=== PATIENT | male | born 1935 | race Caucasian/White ===

== ENCOUNTER 2017-07-16 08:46 | Day surgery (SDC) | payer OTHER, MEDICARE ==
--- NOTE | 2017-07-15 16:19 | EKG ---
Test Date: 2017-07-15 Test Time: 13:43:35 Merchandise Flow Associate: EDUARDA MEASUREMENT RESULTS: Intervals: Rate: 79 NV: 178 QRSD: 98 QT: 398 QTc: 456 Webster: P: 57 NV: 178 QRS: -12 T: 29 INTERPRETIVE STATEMENTS: Normal sinus rhythm Normal ECG Compared to ECG 04/23/2004 09:02:00 No significant changes Electronically Signed On 07-15-17 16:18:49 CDT by Vidal Brand
[2017-07-16] MEDS ORDERED: Ringers Lactate 1,000 ML IV ONE ×2 (08:51→11:57)
[2017-07-16] MEDS: LIDOCAINE 1% W/EPI 1:100,000 MDV 50 ML VIAL ONE ×2 (09:17→10:27)
[2017-07-16] MEDS ORDERED: PROPOFOL 200 MG/20 ML VIAL IV ONE (09:57)
[2017-07-16] MEDS ORDERED: FENTANYL CITR 100 MCG/2 ML ONE (09:58)
[2017-07-16] MEDS ORDERED: LIDOCAINE 2% MPF 5 ML VIAL ONE (09:58)
[2017-07-16] MEDS ORDERED: PROMETHAZINE 25 MG/ML VIAL ONE (11:40)
[2017-07-16] MEDS ORDERED: MORPHINE 4 MG/ML SYR ONE (11:41)
[2017-07-16] MEDS: FENTANYL CITR 100 MCG/2 ML ONE ×7 (11:54→12:38)
[2017-07-16 12:22] VITALS: TEMP 98.6
--- NOTE | 2017-07-16 12:46 | P.BOP ---
Preoperative diagnosis: BCC nose x 2, right neck skin lesion (uncertain behavior ) Postoperative diagnosis: same Primary procedure: WLE x 3, FS, layered closure dorsum, local flap ala Resource Director: NONE,NONE Estimated blood loss: <10ml Specimen: nasal dorsum, L nasal ala, L nasal ala deep (perm), R neck (perm) Anesthesia: General Complications: None Implants: none Transferred to: Recovery Room Condition: Good
[2017-07-16] MEDS ORDERED: TRAMADOL HCL 50 MG TAB ONE (13:28)
[2017-07-16 13:58] VITALS: BP 172/98; O2SAT 99
--- NOTE | 2017-07-18 20:58 | OP ---
Date of Procedure: 07/16/2017 Surgeon: Najma Mariano MD Preoperative Diagnosis: Basal cell carcinoma, nasal dorsum and left nasal ala and right neck skin le carl of uncertain behavior. Indication For Procedure: The patient underwent previous biopsy by his vp biology indicating basa l cell carcinoma of the left nasal ala and the nasal dorsum and on exam was noted to have a dark pigm ented lesion of the right neck. The risks, benefits, and alternatives to the procedure were discusse d with the patient, who agreed to proceed. Description Of Procedure In Detail: The patient was brought to the operating room. He was placed un jaylon general anesthesia. The nose and right neck were injected with local anesthetic and the face and neck were prepped in a standard fashion with Betadine and draped in a sterile fashion. Attention wa s first turned to the nasal dorsum. The prior biopsy site was noted, and a vertical fusiform incisio n was designed around this biopsy site using a 15-blade scalpel. The full-thickness skin was elevate d off the underlying soft tissues. A suture was used to shalom the superior most aspect as 12 o'clock and the specimen was sent to pathology for frozen section analysis. Bleeding at the base of the woun d was controlled with Bovie electrocautery and the lateral aspects were undermined using scissors. T he defect was 1.5 x 0.5 cm. A 4-0 Vicryl suture was used to approximate the wound edges creating a v ertical wound across the nasal dorsum and the skin were closed in a running fashion using 5-0 fast-ab sorbing gut. Attention was then turned to the left nasal ala. The prior biopsy site was noted and a circular exci carl of the biopsy site was performed. The defect was approximately 7 mm. A suture was placed at 12 o'clock marking in the superior aspect of the specimen and the specimen was sent to pathology for fr ozen section analysis. Due to complexity of reconstruction in this area, reconstruction was deferred until frozen section results were available. While awaiting these frozen section results, attention was turned to the right neck. A dark pigmented lesion approximately 8 mm in diameter was noted, and a fusiform excision parallel to the relaxed skin tension lines around the lesion was designed. Full -thickness tissue was excised. No marking stitch was placed and the specimen was sent to pathology f or permanent section only. The surrounding tissues were carefully undermined and the incision was cl osed in a layered fashion in order to reduce tension and improve healing. The deep tissues were appr oximated using a 4-0 Vicryl suture and the skin was closed in a running fashion using 5-0 fast-absorb ing gut. Results from the pathologist regarding the nasal lesions revealed the nasal dorsum margins to be negative with minimal nests of basaloid appearing tissues. The peripheral margins on the left nasal ala site were negative, but the deep margin was felt to be very close. A new deep margin was e xcised with true margin marked with ink. This new specimen was sent for permanent section only and r econstruction options were considered. Bleeding at the surgical site was controlled using needlepoin t Bovie electrocautery. Decision was made for a rhomboid rotational flap with a lateral superior bas ed pedicle. The flap was designed, cut, elevated, and rotated into place. The flap was secured in p lace using Vicryl suture and the skin was closed in a running fashion using 5-0 fast-absorbing gut lan tures. Triple antibiotic ointment was applied to all the incisions and the patient was returned to c are of Anesthesia for awakening and extubation in the operating room, which proceeded without difficu lty. Complications: None. Disposition: The patient will be discharged home later today in the care of his family and will foll ow up with Dr. Mariano in 10 days for evaluation of wounds and healing. CARLOS ALBERTO Voice ID: [id number] Report ID: [id number]
== END 2017-07-16 14:46 | disposition home or self-care (01) ==
LOC: OR 08:46
PROVIDERS: ATTEND Otolaryngology
PROC: 0HB4XZZ Excision of Neck Skin, External Approach (ICD-10-PCS; 2017-07-16)
PROC: 0HB1XZZ Excision of Face Skin, External Approach (ICD-10-PCS; principal; 2017-07-16 10:30)
DX: C44.311 Basal cell carcinoma of skin of nose (principal); L82.1 Other seborrheic keratosis; I10 Essential (primary) hypertension; N40.0 Benign prostatic hyperplasia without lower urinary tract symptoms
CPT/HCPCS: 11421; 11641; 11642; 88305 ×2; 88331; 88332; 93005; J2550; J3010 ×3

== ENCOUNTER 2019-09-27 21:11 | Inpatient (IN) | payer OTHER, MEDICARE ==
[2019-09-27] MEDS ORDERED: TETANUS & DIPHTHERIA TOX,ADULT 0.5 ML VIAL ONE (21:53)
[2019-09-27 21:54] LABS: Absolute Lymphocytes (CBC) 0.6 K/uL (0.7-4.9); Basophils % 0.1 % (0-1.3); Hematocrit 25.6 % (39.6-49.0); Lymphocytes % 3.4 % (15.3-44.8); MPV 6.5 fL (7.6-11.3); Protime INR 0.94; RBC Red Blood Cell Count 2.72 M/uL (4.33-5.43)
[2019-09-27 22:30] LABS: Albumin 3.3 g/dL (3.4-5.0); Bilirubin Direct 0.1 mg/dL (0-0.2); Bilirubin Total 0.4 mg/dL (0.2-1.0); CKMB Creatine Kinase MB 7.4 ng/mL (0.3-3.6); Magnesium 1.8 mg/dL (1.8-2.4); Potassium 4.5 mmol/L (3.5-5.1); Protein, Total 7.4 g/dL (6.4-8.2); Troponin (Emerg Dept Use Only) 0.02 ng/mL (0.0-0.045)
[2019-09-27] MEDS ORDERED: LIDOCAINE VISCOUS 2% SOLN 15 ML UDC ONE (23:25)
[2019-09-27] MEDS ORDERED: NA CHLORIDE 0.9% 1,000 ML ONE (23:25)
--- NOTE | 2019-09-27 23:30 | ER ---
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 fell on mg2 his left side and sustained swelling on his left upper thigh, abrasion in the left hand and left side of the head, nasal trauma and some bruising on his left chest. he woke up and was maurice to go to the kitchen and passed out again. not on blood thinner. Coronavirus screen: Proceed with normal triage. Patient denies a cough. Patient denies shortness of breath or difficulty breathing. Patient denies measured and/or subjective temperature greater than 100.4F prior to today's visit. Patient denies travel on a cruise ship or to a country the [facility] currently lists as an affected area. Patient denies contact with known and/or suspected case of COVID-19. Ebola Screen: No symptoms or risks identified at this time. Initial Sepsis Screen: Does the patient meet any 2 criteria? No. Patient's initial sepsis screen is negative. Does the patient have a suspected source of infection? No. Patient's initial sepsis screen is negative. Risk Assessment: Do you want to hurt yourself or someone else? Patient reports desire/thoughts of hurting themselves or someone else. Provider notified. Onset of symptoms was September 27, 2019. Care prior to arrival: Medication(s) given: demerol 25 mg IV IV initiated. 20 GA, in the left forearm. 21:22 Method Of Arrival: EMS: [facility] [place] 21:22 Acuity: ANDREW 2 mg2 21:28 Mechanism of Injury: Fall from standing position. Trauma event details: Injury occurred [facility] [place] in the [facility], Injury occurred: at home. Injury occurred: September 27, 2019. 09/27 00:52 Care prior to arrival: None. rv Trauma Activation: Alert Physician: ED Physician; Name: ; Notified At: ; Arrived At: Physician: General Surgeon; Name: ; Notified At: ; Arrived At: Physician: Radiology; Name: ; Notified At: ; Arrived At: Physician: Respiratory; Name: ; Notified At: ; Arrived At: Physician: Lab; Name: ; Notified At: ; Arrived At: Historical: - Allergies: 09/26 21:30 Demerol; mg2 - Home Meds: 21:30 HTN med [Active]; Trazodone Oral nightly [Active]; mg2 - PMHx: 21:30 Hypertension; mg2 - PSHx: 21:30 abdominal surgery; mg2 - Immunization history: Last tetanus immunization:. - Family history:: not pertinent. - Social history:: Smoking status: Patient denies any tobacco usage or history of. Patient/guardian denies using alcohol, street drugs, IV drugs. Screenin:36 Abuse screen: Denies threats or abuse. Denies injuries from another. Nutritional mg2 screening: No deficits noted. Tuberculosis screening: No symptoms or risk factors identified. 22:14 Fall Risk Fall in past 12 months (25 points). IV access (20 points). Gait- Impaired (20 mg2 pts.). Primary Survey: 21:35 NO uncontrolled hemorrhage observed. A: The patient is alert. Airway: patent. mg2 Breathing/Chest: Respiratory pattern: regular, Respiratory effort: spontaneous, unlabored. Circulation: Skin color: pink. Disability Alert. Exposure/Environment: All clothing and personal items were removed. Forensic evidence collection is not deemed to be indicated at this time. Items placed in patient belonging bag. There is no evidence of uncontrolled external bleeding. Obvious injury(ies) are noted at this time: nasal, left hand abrasion A warming method has been applied: A warm blanket has been provided to the patient. 09/27 00:52 Reassessment Airway Airway Patent Breathing/Chest Respiratory pattern Regular rv Circulation Heart rhythm Sinus rhythm Disability Alert. Secondary Survey: 09/26 21:36 HEENT: Head Other abrasion. Gastrointestinal: No deficits noted. : No signs and/or mg2 symptoms were reported regarding the genitourinary system. Musculoskeletal: Circulation, motion, and sensation intact. Capillary refill < 3 seconds. Assessment: 21:32 General: Appears in no apparent distress. comfortable, Behavior is calm, cooperative. mg2 Pain: Complains of pain in left leg. Neuro: Level of Consciousness is awake, alert, obeys commands, Oriented to person, place, time, situation. EENT: Nares no active bleedingnoted now. Cardiovascular: Capillary refill < 3 seconds Patient's skin is warm and dry. Respiratory: Airway is patent Respiratory effort is even, unlabored, Respiratory pattern is regular, symmetrical. GI: No signs and/or symptoms were reported involving the gastrointestinal system. : No signs and/or symptoms were reported regarding the genitourinary system. Derm: Wound noted face and left hand. Musculoskeletal: Circulation, motion, and sensation intact. Capillary refill < 3 seconds, Swelling present in left leg. 22:13 Reassessment: Sandy (daughter) updated about the patient., [phone]. mg2 09/27 00:26 Reassessment: Patient appears in no apparent distress at this time. Patient and/or mg2 family updated on plan of care and expected duration. Pain level reassessed. Patient is alert, oriented x 3, equal unlabored respirations, skin warm/dry/pink. Vital Signs: 09/26 21:22 BP 137 / 83; Pulse 82; Resp 18; Temp 97; Pulse Ox 100% on R/A; Weight 70.31 kg; Height mg2 5 ft. 9 in. (175.26 cm); 22:00 BP 109 / 72; Pulse 74; Resp 18; Pulse Ox 100% on R/A; rv 23:00 BP 145 / 77; Pulse 87; Resp 18; Pulse Ox 100% on R/A; rv 09/27 00:00 BP 158 / 74; Pulse 91; Resp 17; Pulse Ox 100% ; rv 00:45 BP 138 / 67; Pulse 84; Resp 16; Pulse Ox 100% on R/A; rv 09/26 21:22 Body Mass Index 22.89 (70.31 kg, 175.26 cm) mg2 [place] Coma Score: 09/26 21:34 Eye Response: spontaneous(4). Verbal Response: oriented(5). Motor Response: obeys mg2 commands(6). Total: 15. Trauma Score (Adult): 21:34 Eye Response: spontaneous(1); Verbal Response: oriented(1); Motor Response: obeys mg2 commands(2); Systolic BP: > 89 mm Hg(4); Respiratory Rate: 10 to 29 per min(4); [place] Score: 15; Trauma Score: 12 ED Course: 21:22 Patient arrived in ED. mg2 21:28 Triage completed. mg2 21:31 Duncan Stanley, SHERLY is Primary Nurse. mg2 21:32 Syed Walker MD is Attending Physician. nilson 21:36 Patient has correct armband on for positive identification. Placed in gown. mg2 21:37 Maintain EMS IV. Dressing intact. Good blood return noted. Site clean \T\ dry. Gauge \T\ mg 2 site: 20 \T\L FA. Patient maintains SpO2 saturation greater than 95% on room air. 22:14 No provider procedures requiring assistance completed. mg2 22:14 Thermoregulation: warm blanket given to patient. mg2 22:15 Arm band placed on. mg2 22:32 Notified ED physician of a critical lab result(s). cO2 of 14. sg 22:55 Pelvis XRAY In Process Unspecified. EDMS 22:55 Hip Left 2 View XRAY In Process Unspecified. EDMS 22:55 Femur Left XRAY In Process Unspecified. EDMS 23:23 Head C Spine Cap Wo Con In Process Unspecified. EDMS 23:27 Jarrell Verma MD is Hospitalizing Provider. nilson 23:30 Sanchez cath inserted, using sterile technique, 16 Fr., Patient tolerated well. mg2 23:57 Chest Single View XRAY In Process Unspecified. EDMS 09/27 00:53 IV is patent, with fluids infusing freely, with good blood return, Patient admitted, IV rv remains in place. 01:15 Notified ED physician of a critical lab result(s). Hgb 7.6. sg Administered Medications: 09/26 21:52 Drug: Tetanus-Diphtheria Toxoid Adult 0.5 ml {Credit [employer] Examiner: [employer]. Exp: mg2 04/28/2021. Lot #: [id number]. } Route: IM; Site: left deltoid; 09/27 00:51 Follow up: Response: No adverse reaction rv 09/26 22:07 Drug: Zofran (Ondansetron) 4 mg Route: IVP; Site: left forearm; mg2 09/27 00:50 Follow up: Response: No adverse reaction rv 09/26 22:08 Drug: morphine 2 mg Route: IVP; Site: left forearm; mg2 09/27 00:50 Follow up: Response: No adverse reaction; Marked relief of symptoms; RASS: Alert and rv Calm (0) 09/26 23:41 Drug: NS 0.9% 500 ml Route: IV; Rate: bolus; Site: left forearm; mg2 09/27 00:01 Follow up: IV Status: Completed infusion; IV Intake: 500ml rv 09/26 23:41 Drug: NS 0.9% 1000 ml Route: IV; Rate: 125 ml/hr; Site: left forearm; mg2 09/27 00:50 Follow up: IV Status: Completed infusion rv 09/26 23:41 Drug: Pepcid 20 mg Route: IVP; Site: left forearm; mg2 09/27 00:50 Follow up: Response: No adverse reaction rv Intake: 09/26 21:34 PO: 0ml; Total: 0ml. [facility] [place] 09/27 00:01 IV: 500ml; Total: 500ml. rv Outcome: 09/26 23:30 Decision to Hospitalize by Provider. [facility] 09/27 00:52 Admitted to Med/surg accompanied by tech, via stretcher, room 201, Report called to sylvie ENCISO RN Condition: good Discharge instructions given to Instructed on the need for admit. 01:04 Patient left the ED. mg2 Signatures: Dispatcher [employer] EDEmmett Neil, RN RN Syed Valderrama MD MD cha Gardose, Michele, RN RN mg2 Montana Salcido RN RN rv
--- NOTE | 2019-09-27 23:30 | EDPHYS ---
Physician Documentation [facility] Name: Judge Avendano Age: 83 yrs Sex: Male : 1935 Arrival Date: 09/27/2019 Time: 21:22 Bed 2 Private MD: RACHAEL Physician Syed Walker HPI: 09/26 21:52 This 83 yrs old Male presents to ER via EMS with complaints of syncope x2, nilson fall hip pain. 21:52 The patient has a laceration related to: falling occurred at home. The laceration(s) nilson is(are) located on the left hip. The patient or guardian reports deformity, an injury, pain. that occurred at home, sustained from unknown reason, large hematoma, hx of hip surgery. The complaints affect the face and left hand. Onset: The symptoms/episode began/occurred just prior to arrival. Modifying factors: The symptoms are alleviated by remaining still, the symptoms are aggravated by any movement, extension, external rotation, flexion, internal rotation, weight bearing. Details of fall: The patient fell from an upright position, while standing, while walking. The patient has experienced syncope, became unresponsive, collapsed. Historical: - Allergies: 21:30 Demerol; mg2 - Home Meds: 21:30 HTN med [Active]; Trazodone Oral nightly [Active]; mg2 - PMHx: 21:30 Hypertension; mg2 - PSHx: 21:30 abdominal surgery; mg2 - Immunization history: Last tetanus immunization:. - Family history:: not pertinent. - Social history:: Smoking status: Patient denies any tobacco usage or history of. Patient/guardian denies using alcohol, street drugs, IV drugs. ROS: 21:52 Constitutional: Negative for fever, chills, and weight loss, Eyes: Negative for injury, nilson pain, redness, and discharge, ENT: Negative for injury, pain, and discharge, Neck: Negative for injury, pain, and swelling, Cardiovascular: Negative for chest pain, palpitations, and edema, Respiratory: Negative for shortness of breath, cough, wheezing, and pleuritic chest pain, Abdomen/GI: Negative for abdominal pain, nausea, vomiting, diarrhea, and constipation, Back: Negative for injury and pain, : Negative for injury, bleeding, discharge, and swelling, Skin: Negative for injury, rash, and discoloration, Neuro: Negative for headache, weakness, numbness, tingling, and seizure, Psych: Negative for depression, anxiety, suicide ideation, homicidal ideation, and hallucinations, Allergy/Immunology: Negative for hives, rash, and allergies, Endocrine: Negative for neck swelling, polydipsia, polyuria, polyphagia, and marked weight changes, Hematologic/Lymphatic: Negative for swollen nodes, abnormal bleeding, and unusual bruising. 21:52 MS/extremity: Positive for contusion, decreased range of motion, deformity, pain, swelling, tenderness, of the left femoral area and left hip. Exam: 21:52 Constitutional: This is a well developed, well nourished patient who is awake, alert, nilson and in no acute distress. Eyes: Pupils equal round and reactive to light, extra-ocular motions intact. Lids and lashes normal. Conjunctiva and sclera are non-icteric and not injected. Cornea within normal limits. Periorbital areas with no swelling, redness, or edema. ENT: Nares patent. No nasal discharge, no septal abnormalities noted. Tympanic membranes are normal and external auditory canals are clear. Oropharynx with no redness, swelling, or masses, exudates, or evidence of obstruction, uvula midline. Mucous membranes moist. Neck: Trachea midline, no thyromegaly or masses palpated, and no cervical lymphadenopathy. Supple, full range of motion without nuchal rigidity, or vertebral point tenderness. No Meningismus. Chest/axilla: Normal chest wall appearance and motion. Nontender with no deformity. No lesions are appreciated. Cardiovascular: Regular rate and rhythm with a normal S1 and S2. No gallops, murmurs, or rubs. Normal PMI, no JVD. No pulse deficits. Respiratory: Lungs have equal breath sounds bilaterally, clear to auscultation and percussion. No rales, rhonchi or wheezes noted. No increased work of breathing, no retractions or nasal flaring. Abdomen/GI: Soft, non-tender, with normal bowel sounds. No distension or tympany. No guarding or rebound. No evidence of tenderness throughout. Back: No spinal tenderness. No costovertebral tenderness. Full range of motion. Male : Normal genitalia with no discharge or lesions. Neuro: Awake and alert, GCS 15, oriented to person, place, time, and situation. Cranial nerves II-XII grossly intact. Motor strength 5/5 in all extremities. Sensory grossly intact. Cerebellar exam normal. Normal gait. Psych: Awake, alert, with orientation to person, place and time. Behavior, mood, and affect are within normal limits. 21:52 Head/face: Noted is abrasion(s), that are moderate, of the left worship, contusion, erythema, swelling, that is mild, of the left worship. 21:52 Musculoskeletal/extremity: Extremities: grossly normal except: noted in the left hip: decreased ROM, pain, swelling, tenderness, ROM: limited active range of motion, limited passive range of motion, limited active range of motion due to pain, limited passive range of motion due to pain, Circulation is intact in all extremities. Sensation intact. Compartment Syndrome exam of affected extremity: is normal. 21:52 Neuro: Orientation: is normal, appropriate for stated age, no acute changes, Mentation: is normal, appropriate for stated age, no acute changes, Memory: is normal, appropriate for stated age, no acute changes, Cranial nerves: grossly normal, is grossly normal based on the patient's age, no acute changes, Cerebellar function: is grossly normal, is grossly normal based on the patient's age, no acute changes, Motor: is normal, is grossly normal based on the patient's age, no acute changes, moves all fours, Deep tendon reflexes are 2+ (normal) in the bilateral brachioradialis, bicep, tricep and patellar and Achilles tendons. 09/27 00:41 ECG was reviewed by the Attending Physician. nilson Vital Signs: 09/26 21:22 BP 137 / 83; Pulse 82; Resp 18; Temp 97; Pulse Ox 100% on R/A; Weight 70.31 kg; Height mg2 5 ft. 9 in. (175.26 cm); 22:00 BP 109 / 72; Pulse 74; Resp 18; Pulse Ox 100% on R/A; rv 23:00 BP 145 / 77; Pulse 87; Resp 18; Pulse Ox 100% on R/A; rv 09/27 00:00 BP 158 / 74; Pulse 91; Resp 17; Pulse Ox 100% ; rv 00:45 BP 138 / 67; Pulse 84; Resp 16; Pulse Ox 100% on R/A; rv 09/26 21:22 Body Mass Index 22.89 (70.31 kg, 175.26 cm) mg2 Rolly Coma Score: 09/26 21:34 Eye Response: spontaneous(4). Verbal Response: oriented(5). Motor Response: obeys mg2 commands(6). Total: 15. Trauma Score (Adult): 21:34 Eye Response: spontaneous(1); Verbal Response: oriented(1); Motor Response: obeys mg2 commands(2); Systolic BP: > 89 mm Hg(4); Respiratory Rate: 10 to 29 per min(4); Malin Score: 15; Trauma Score: 12 MDM: 21:32 Patient medically screened. [facility] 21:57 Data reviewed: vital signs, nurses notes, lab test result(s), EKG, radiologic studies, [facility] CT scan, plain films. 09/26 21:32 Order name: Basic Metabolic Panel; Complete Time: 22:34 [facility] 09/26 21:32 Order name: CBC with Diff [facility] 09/26 21:32 Order name: Ckmb; Complete Time: 22:34 [facility] 09/26 21:32 Order name: CPK; Complete Time: 22:34 [facility] 09/26 21:32 Order name: Hepatic Function; Complete Time: 22:34 [facility] 09/26 21:32 Order name: Lipase; Complete Time: 22:34 [facility] 09/26 21:32 Order name: Magnesium; Complete Time: 22:34 [facility] 09/26 21:32 Order name: Protime (+inr); Complete Time: 22:32 [facility] 09/26 21:32 Order name: Ptt, Activated; Complete Time: 22:32 [facility] 09/26 21:32 Order name: Troponin (emerg Dept Use Only); Complete Time: 22:34 [facility] 09/26 21:40 Order name: Glucose, Ancillary Testing; Complete Time: 22:32 EDMA 09/26 21:57 Order name: Type And Screen [facility] 09/26 22:14 Order name: Manual Differential EDMA 09/26 22:35 Order name: Osmolality, Serum [facility] 09/26 21:50 Order name: Pelvis XRAY [facility] 09/26 21:50 Order name: Hip Left 2 View XRAY [facility] 09/26 21:50 Order name: Femur Left XRAY [facility] 09/26 22:35 Order name: Urine Osmolality [facility] 09/26 22:35 Order name: Urine Sodium Random [facility] 09/26 23:00 Order name: Head C Spine Cap Wo Con EDMA 09/26 23:23 Order name: Chest Single View XRAY [facility] 09/26 23:49 Order name: Urine Dipstick--Ancillary (enter results) ar5 09/27 00:35 Order name: CBC with Diff [facility] 09/26 21:32 Order name: EKG; Complete Time: 21:32 [facility] 09/26 21:32 Order name: Cardiac monitoring; Complete Time: 21:53 [facility] 09/26 21:32 Order name: EKG - Nurse/Tech; Complete Time: 21:54 [facility] 09/26 21:32 Order name: IV Saline Lock; Complete Time: 21:54 [facility] 09/26 21:32 Order name: Labs collected and sent; Complete Time: 21:54 [facility] 09/26 21:32 Order name: NPO; Complete Time: 21:54 [facility] 09/26 21:32 Order name: O2 Per Protocol; Complete Time: 21:54 [facility] 09/26 21:32 Order name: O2 Sat Monitoring; Complete Time: 21:54 [facility] 09/26 21:32 Order name: Urine Dipstick-Ancillary (obtain specimen); Complete Time: 00:01 [facility] 09/26 21:50 Order name: Ice pack; Complete Time: 21:52 [facility] 09/26 21:50 Order name: Wound Care; Complete Time: 00:01 [facility] 09/26 22:35 Order name: Sanchez: viscus lido; Complete Time: 23:39 [facility] 09/26 23:51 Order name: CONS Physician Consult [facility] 09/27 00:36 Order name: Labs - recollect needed: per please draw CBC now ; Complete sg Time: 00:50 EC/16 00:41 Rate is 73 beats/min. QRS [place] is Normal. VA interval is normal. QRS interval is nilson normal. QT interval is normal. No Q waves. T waves are Normal. No ST changes noted. Clinical impression: Normal ECG and No evidence of ischemia. Interpreted by me. Reviewed by me. 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 Exp: mg2 04/28/2021. Lot #: [id number]. } Route: IM; Site: left deltoid; 09/27 00:51 Follow up: Response: No adverse reaction 09/26 22:07 Drug: Zofran (Ondansetron) 4 mg Route: IVP; Site: left forearm; [facility] 09/27 00:50 Follow up: Response: No adverse reaction rv 09/26 22:08 Drug: morphine 2 mg Route: IVP; Site: left forearm; [facility] 09/27 00:50 Follow up: Response: No adverse reaction; Marked relief of symptoms; RASS: Alert and rv Calm (0) 09/26 23:41 Drug: NS 0.9% 500 ml Route: IV; Rate: bolus; Site: left forearm; [facility] 09/27 00:01 Follow up: IV Status: Completed infusion; IV Intake: 500ml rv 09/26 23:41 Drug: NS 0.9% 1000 ml Route: IV; Rate: 125 ml/hr; Site: left forearm; [facility] 09/27 00:50 Follow up: IV Status: Completed infusion 09/26 23:41 Drug: Pepcid 20 mg Route: IVP; Site: left forearm; [facility] 09/27 00:50 Follow up: Response: No adverse reaction rv Disposition: 09/27/19 23:30 Hospitalization ordered by Jarrell Verma for Inpatient Admission. Preliminary diagnosis are Syncope and collapse, Displaced fracture of greater trochanter of left femur - hematoma, Anemia, unspecified, Unspecified kidney failure - acute on chronic, Laceration without foreign body of left hand - skin tears, Superficial injury of head, Weakness, Hypo-osmolality and hyponatremia, Elevated white blood cell count. - Bed requested for Telemetry/MedSurg (Inpatient). - Status is Inpatient Admission. mg2 - Condition is Stable. - Problem is new. - Symptoms have improved. Signatures: Dispatcher [employer] EDMA Emmett Varner RN RN sg Anderson, Corey, MD MD cha Garcia, Cindy, RN RN Duncan Stanley RN RN mg2 Vicente, Ronaldo RN rv Corrections: (The following items were deleted from the chart) 09/26 23:00 21:50 Head C Spine CAP W Con+CT.RAD.BRZ ordered. EDMA EDMA 23:30 23:30 Hospitalization Ordered by Jarrell Verma MD for Inpatient Admission. Preliminary [facility] diagnosis is Syncope and collapse; Displaced fracture of greater trochanter of left femur - hematoma; Anemia, unspecified; Unspecified kidney failure - acute on chronic; Laceration without foreign body of left hand - skin tears. Bed requested for Telemetry/MedSurg (Inpatient). Status is Inpatient Admission. Condition is Stable. Problem is new. Symptoms have improved. [facility] : 23:30 09/27/2019 23:30 Hospitalization Ordered by Jarrell Verma MD for Inpatient nilson Admission. Preliminary diagnosis is Syncope and collapse; Displaced fracture of greater trochanter of left femur - hematoma; Anemia, unspecified; Unspecified kidney failure - acute on chronic; Laceration without foreign body of left hand - skin tears; Superficial injury of head; Weakness. Bed requested for Telemetry/MedSurg (Inpatient). Status is Inpatient Admission. Condition is Stable. Problem is new. Symptoms have improved. [facility] 23:47 23:31 09/27/2019 23:30 Hospitalization Ordered by Jarrell Verma MD for Inpatient nilson Admission. Preliminary diagnosis is Syncope and collapse; Displaced fracture of greater trochanter of left femur - hematoma; Anemia, unspecified; Unspecified kidney failure - acute on chronic; Laceration without foreign body of left hand - skin tears; Superficial injury of head; Weakness; Hypo-osmolality and hyponatremia. Bed requested for Telemetry/MedSurg (Inpatient). Status is Inpatient Admission. Condition is Stable. Problem is new. Symptoms have improved. [facility] 09/27 00:31 09/26 23:47 09/27/2019 23:30 Hospitalization Ordered by Jarrell Verma MD for Inpatient cg Admission. Preliminary diagnosis is Syncope and collapse; Displaced fracture of greater trochanter of left femur - hematoma; Anemia, unspecified; Unspecified kidney failure - acute on chronic; Laceration without foreign body of left hand - skin tears; Superficial injury of head; Weakness; Hypo-osmolality and hyponatremia; Elevated white blood cell count. Bed requested for Telemetry/MedSurg (Inpatient). Status is Inpatient Admission. Condition is Stable. Problem is new. Symptoms have improved. [facility] 09/27 01:04 00:31 09/27/2019 23:30 Hospitalization Ordered by Jarrell Verma MD for Inpatient mg2 Admission. Preliminary diagnosis is Syncope and collapse; Displaced fracture of greater trochanter of left femur - hematoma; Anemia, unspecified; Unspecified kidney failure - acute on chronic; Laceration without foreign body of left hand - skin tears; Superficial injury of head; Weakness; Hypo-osmolality and hyponatremia; Elevated white blood cell count. Bed requested for Telemetry/MedSurg (Inpatient). Status is Inpatient Admission. Condition is Stable. Problem is new. Symptoms have improved. cg
[2019-09-27 23:48] LABS: Blood Morphology Comment NOT SEEN (NOT SEEN); Platelet Estimate INCR
[2019-09-27] MEDS ORDERED: FAMOTIDINE 20 MG/2 ML VIAL IV ONE (23:49)
[2019-09-28] MEDS ORDERED: ONDANSETRON 4 MG/2 ML VIAL IV PRN (00:54)
[2019-09-28 01:06] LABS: Absolute Lymphocytes (CBC) 0.4 K/uL (0.7-4.9); Basophils % 0.1 % (0-1.3); Hematocrit 22.3 % (39.6-49.0); Lymphocytes % 2.5 % (15.3-44.8); MPV 6.6 fL (7.6-11.3); RBC Red Blood Cell Count 2.37 M/uL (4.33-5.43)
[2019-09-28 01:30] VITALS: BMI 21.1
[2019-09-28] MEDS: NA CHLORIDE 0.9% 1,000 ML IV SCH ×2 (01:30→14:14)
[2019-09-28] MEDS ORDERED: ACETAMINOPHEN 325 MG TABLET PO PRN (01:42)
[2019-09-28 01:50] LABS: Urine Blood NEGATIVE (NEG); Urine Glucose NEGATIVE (NEG); Urine Protein NEGATIVE (NEG); Urine pH 5.5 (5.0-7.0)
[2019-09-28] MEDS: MORPHINE 4 MG/ML SYR IV PRN ×2 (02:18→09:31)
[2019-09-28 02:33] LABS: Troponin I 0.03 ng/mL (0.0-0.045)
[2019-09-28] MEDS ORDERED: NA CHLORIDE 0.9% 250 ML ONE (03:14)
[2019-09-28] MEDS: ACETAMINOPHEN 325 MG TABLET PO PRN ×2 (03:22→14:00)
[2019-09-28] MEDS ORDERED: DIPHENHYDRAMINE 50 MG/ML VIAL IV PRN (03:30)
[2019-09-28 03:31] LABS: Potassium 4.9 mmol/L (3.5-5.1)
[2019-09-28] MEDS ORDERED: FUROSEMIDE 20 MG/ 2ML VIAL IV ONE (04:15)
[2019-09-28] MEDS ORDERED: SODIUM BICARB 50 MEQ/50ML VIAL ONE (04:32)
[2019-09-28] MEDS ORDERED: D5W 1,000 ML IV ONE (04:32)
[2019-09-28] MEDS ORDERED: PIPER/TAZO/NS 3.375gm 3.375 GM/100 ML BAG ONE (04:38)
[2019-09-28] MEDS: D5W 1,000 ML with NA BICARB 8.4% 50 MEQ IV SCH ×4 (05:00→15:30)
[2019-09-28 05:21] LABS: Arterial Blood Carboxyhemoglob 1.1 % (0-1.5); Blood O2 Saturation 98.2 % (92-98.5)
[2019-09-28 06:48] LABS: Potassium 4.5 mmol/L (3.5-5.1); Troponin I 0.02 ng/mL (0.0-0.045)
[2019-09-28] MEDS ORDERED: FUROSEMIDE 20 MG/ 2ML VIAL IV SCH (07:00)
--- NOTE | 2019-09-28 07:11 | RAD REPORT ---
EXAM DESCRIPTION: RAD - Chest Single View - 09/28/2019 5:20 am CLINICAL HISTORY: Chest Pain COMPARISON: Portable September 26 TECHNIQUE: AP portable chest image was obtained 09/28/2019 5:20 am . FINDINGS: No new mass or infiltrate of the lung parenchyma. Interstitial pattern remains stable. Kamaljit ign in pleural calcifications are present. Heart and vasculature are normal. No measurable pleural ef fusion and no pneumothorax. No acute bony abnormality seen. No acute aortic findings suspected. IMPRESSION: No acute cardiopulmonary process. Chest is stable from prior imaging.
--- NOTE | 2019-09-28 07:12 | RAD REPORT ---
EXAM DESCRIPTION: RAD - Chest Single View - 09/27/2019 11:57 pm CLINICAL HISTORY: Pain;Blunt chest trauma COMPARISON: Two view chest July 2012 TECHNIQUE: AP portable chest image was obtained 09/27/2019 11:57 pm . FINDINGS: No mass, pulmonary contusion or acute infiltrate. Interstitial pattern is prominent but no t clearly different from comparison. Benign pleural calcifications are present. Heart and vasculature are normal. No measurable pleural effusion and no pneumothorax. No acute rib d eformity identifiable. Detail of the ribcage is limited on portable imaging. No acute aortic findings suspected. IMPRESSION: No acute cardiopulmonary process. Chronic pleural and parenchymal changes are present not substantially different from 2013.
--- NOTE | 2019-09-28 07:14 | RAD REPORT ---
EXAM DESCRIPTION: RAD - Pelvis - 09/27/2019 10:57 pm CLINICAL HISTORY: BLUNT TRAUMA COMPARISON: HIP BILATERAL WITH PEL dated 04/16/2008 TECHNIQUE: AP imaging of the pelvis was obtained. FINDINGS: Prominent lower lumbar degenerative changes are present only partially imaged on this stud y. No acute fracture of the bony pelvis identified. Osteopenic changes are present. SI joint and pubi c symphysis degenerative changes are mild. Mild to moderate for age right hip joint degenerative changes are present. No AVN or focal abnormalit y of the right femoral head. No fracture at the right hip joint. Left bipolar prosthesis in place. Avulsion fracture the superior aspect greater trochanter is present distracted superiorly approximately 1.5 cm. No recent imaging available after hip implant placement. The avulsion fracture is most likely acute. No pathologic changes identified. No subsidence of the f emoral component. IMPRESSION: Avulsion fracture of the left femur greater trochanter with fracture fragment migrated 1 .5 centimeter superiorly.
--- NOTE | 2019-09-28 07:16 | RAD REPORT ---
EXAM DESCRIPTION: RAD - Femur Left - 09/27/2019 10:55 pm CLINICAL HISTORY: Pain;Deformity COMPARISON: Pelvis same date, left hip same date FINDINGS: Greater trochanter findings detailed left hip report. Remainder the femur shows mild osteopenic change. No additional fracture site or pathologic bone pr ocess identified. Left femoral component shows no migration or reactive bony changes. Osteopenic huddleston ges are greater in the intertrochanteric region than within the shaft or distal femur. Knee joint deg enerative changes are present mild for age. Left knee acute finding is not suspected. No air or forei gn body in the soft tissues. IMPRESSION: Left greater trochanter fracture is separately detailed. Remainder the femur exam shows no acute finding.
--- NOTE | 2019-09-28 07:18 | RAD REPORT ---
EXAM DESCRIPTION: RAD - Hip Left 2 View - 09/27/2019 10:55 pm CLINICAL HISTORY: Pain;Deformity COMPARISON: Femur Left dated 09/27/2019; Pelvis dated 09/27/2019 FINDINGS: AP and frogleg views of the left hip were obtained. Avulsion fracture of the superior aspect greater trochanter is present with approximately 1.5 cm of s uperior distraction. This is most likely an acute fracture. Osteopenic changes are present in the int ertrochanteric region of the femur. No subsidence of the left bipolar prosthesis femoral component. N o reactive bony changes along the shaft of the femur. Partially imaged left hemipelvis shows degenerative and osteopenic change. No fracture component. Dense arterial tree calcifications are present. IMPRESSION: Avulsion fracture of the left femur greater trochanter.
[2019-09-28] MEDS: FAMOTIDINE 20 MG/2 ML VIAL IV SCH ×2 (08:26→20:39)
[2019-09-28 08:50] LABS: Absolute Lymphocytes (CBC) 1.4 K/uL (0.7-4.9); Basophils % 0.2 % (0-1.3); Hematocrit 28.5 % (39.6-49.0); Lymphocytes % 11.3 % (15.3-44.8); MPV 6.4 fL (7.6-11.3); RBC Red Blood Cell Count 3.07 M/uL (4.33-5.43)
--- NOTE | 2019-09-28 09:55 | RAD REPORT ---
EXAM DESCRIPTION: CT - Head C Spine Cap Wo Con - 09/28/2019 6:37 am CLINICAL HISTORY: Pain;Deformity COMPARISON: CT head and cervical spine December 28, 2016 TECHNIQUE: Multiple helical axial tomographic images were obtained of the head cervical spine, chest , abdomen, and pelvis without intravenous contrast. This exam was performed according to our [facility] dose-optimization program, which includes automated exposure control, adjustment of the mA and/o r kV according to patient size and/or use of iterative reconstruction technique. FINDINGS: Head: Generalized brain volume loss is demonstrated. There is patchy hypoattenuation in the cerebral white matter which is nonspecific but suggestive of chronic microvascular ischemic changes. There is no acu te intracranial hemorrhage. No mass. No midline shift. No ventriculomegaly. See-white matter differe ntiation is maintained. Paranasal sinus mucosal thickening is present. Mastoid air cells and middle ear spaces are clear. [place] nges of lens replacement are noted. Osseous structures are unremarkable. Surrounding soft tissues are unremarkable. Cervical spine: No evidence for an acute fracture of the cervical spine. There are changes of ACDF from C5 to C7 with out obvious hardware failure. Multilevel degenerative disc space narrowing and osteophyte formation i s demonstrated. There is multilevel subluxation which is likely degenerative related. Multilevel neur oforaminal and central canal narrowing noted. Surrounding soft tissues are unremarkable. Chest: Thyroid gland: unremarkable. Axilla: unremarkable. Aorta: Mild aortic atherosclerosis is present. No evidence of aortic aneurysm. Mediastinum: Unremarkable. No adenopathy. Heart: Heart is normal in size. Coronary artery atherosclerosis demonstrated. Lungs/airways: No consolidation. There are few calcified granulomas bilaterally. Airways are patent. Pleural spaces: No significant pleural effusion. No pneumothorax. Scattered calcified pleural plaques noted. Osseous: Degenerative changes of the spine noted. Left hip arthroplasty changes are present. Soft tissues: Unremarkable. Abdomen and pelvis: Liver: Homogenous attenuation is demonstrated. Gallbladder/biliary: Cholecystectomy changes are present. There is mild prominence of the common bile duct which is nonspecific in the setting of prior cholecystectomy. Pancreas: Unremarkable. Spleen: Unremarkable. Adrenals: Unremarkable. Kidneys and ureters: There is moderate bilateral hydronephrosis and hydroureter. Evaluation of the di stal ureters is limited due to artifact related to left hip arthroplasty. No obvious obstructing uret eral stone. No evidence of renal stones. Bladder: Bladder appears distended and trabeculated. Pelvic organs: Unremarkable. Bowel: Colonic diverticula are present. No evidence of bowel obstruction. No bowel wall thickening. A ppendix appears unremarkable. Peritoneum: No free air. No significant free fluid. Lymph nodes: Unremarkable. Vasculature: Aortoiliac atherosclerosis is present. Soft tissues: There is a an area of hyperdensity in the soft tissues lateral to the left hip and prox imal femur measuring at least 5 cm x 11 cm in the axial plane suggestive of hematoma which is incompl etely imaged and positioned between the subcutaneous tissues and musculature. Bones: Degenerative changes of the lumbar spine noted. There is an acute appearing, mildly displaced fracture of the left femoral greater trochanter. Impression: 1. Incompletely imaged large hematoma between the subcutaneous tissues and musculature lateral to the left hip/proximal femur suggestive of a Regan-Marcos lesion. Acute appearing fracture of the left femoral greater trochanter. 2. Moderate bilateral hydronephrosis and hydroureter. Distal ureters are difficult to evaluate due to artifact related to left hip arthroplasty, however no obvious distal ureteral obstructive process. 3. Distended and trabeculated bladder. 4. No evidence for an acute process within the chest. 5. No evidence for an acute intracranial process. 6. No evidence for an acute fracture of the cervical spine. Cervical spine degenerative changes. THIS REPORT CONTAINS FINDINGS THAT MAY BE CRITICAL TO PATIENT CARE: The findings were verbally discu ssed via telephone conference with Dr. Walker by Dr. Phelps at 0025 hours central time on September 27 0. The results were acknowledged and understood. Electronically signed by: Yovany Phelps MD 09/28/2019 12:32 AM CDT Due to temporary technical issues with the PACS/Fluency reporting system, reports are being signed by the in house radiologist without review as a courtesy to ensure prompt reporting. The interpreting r adiologist is fully responsible for the content of the report.
[2019-09-28] MEDS: OLMESARTAN 40 MG PO SCH (12:00)
[2019-09-28] MEDS: PIPER/TAZO/NS 2.25gm 2.25 GM/50 ML BAG IVPB SCH ×2 (12:02→18:00)
--- NOTE | 2019-09-28 13:02 | P.HP ---
Certification for Inpatient Patient admitted to: Inpatient With expected LOS: >2 Midnights Practitioner: I am a practitioner with admitting privileges, knowledge of patient current condition, hospital course, and medical plan of care. Services: Services provided to patient in accordance with Admission requirements found in Title 42 Section 412.3 of the Code of Federal Regulations Patient History Date of Service: 09/28/19 Reason for admission: PASSED OUT TWICE. History of Present Illness: MR. DUONG HAS NO SYMPTOMS OF ANY ISSUES BEFORE HE PASSED OUT TWICE AT HOME. HE HAS NO CHEST PAIN, NAUSEA, FEVER ETC. I TALKED TO HIS DAUGHTER. HE AT BASELINE IS A HEALTHY ELDERLY MAN WITH HTN, AND DJD. HE BROKE TROCHANTERIC PROCESS WHILE HE FELL. THIS IS NOT SURGICAL. Allergies meperidine HCl [From Demerol] Adverse Reaction (Verified 07/15/17 13:54) hallucinations Home Medications: Mirabegron [Myrbetriq] 50 mg PO DAILY 09/28/19 Olmesartan Medoxomil 20 mg PO DAILY 09/28/19 Omeprazole [Prilosec] 40 mg PO DAILY 09/28/19 - Past Medical/Surgical History Has patient received pneumonia vaccine in the past: Yes Diabetic: No -: HYpertension -: Prostate problem -: Cholecystectomy -: Hip sx -: abdominal Sx - Family History Father -: Heart disease, Stroke Mother -: Other (see notes) Notes: no medical problem - Social History Smoking Status: Never smoker Alcohol use: Yes CD- Drugs: No Caffeine use: Yes Place of Residence: Home Review of Systems 10-point ROS is otherwise unremarkable General: Weakness, Malaise Physical Examination - Vital Signs Temperature: 97.4 F Blood Pressure: 192/88 Pulse: 72 Respirations: 19 Pulse Ox (%): 95 - Physical Exam General: Mild distress, Other (FOREHEAD HEMATOMA, IS STABLE.) HEENT: Atraumatic, PERRLA, Mucous membr. moist/pink, EOMI, Sclerae nonicteric Neck: Supple, 2+ carotid pulse no bruit, No LAD, Without JVD or thyroid abnormality Respiratory: Clear to auscultation bilaterally, Normal air movement Cardiovascular: Regular rate/rhythm, Normal S1 S2 Gastrointestinal: Normal bowel sounds, No tenderness Musculoskeletal: No tenderness, Other Integumentary: No rashes Neurological: Normal gait, Normal speech, Normal strength at 5/5 x4 extr, Normal tone, Normal affect Lymphatics: No axilla or inguinal lymphadenopathy - Studies Laboratory Data (last 24 hrs) 09/27/19 21:30: PT 11.1, INR 0.94, APTT 29.4 09/27/19 21:30: WBC 18.5 H, Hgb 8.7 L, Hct 25.6 L, Plt Count 457 H 09/27/19 21:30: Sodium 125 L, Potassium 4.5, BUN 22 H, Creatinine 1.82 H, Glucose 212 H, Magnesium 1.8, Total Bilirubin 0.4, AST 29, ALT 16, Alkaline Phosphatase 117, Lipase 174 Assessment and Plan - Problems (Diagnosis) (1) Syncopal episodes Current Visit: Yes Status: Acute Plan: IT IS UNCLEAR WHY THIS HAPPENED. IF THERE IS SEPSIS, SO FAR I DON'T SEE A SOURCE OF IT. CXR, UA, CLINICAL EXAM ARE ALL NEGATIVE. SCANS DONE IN ER ARE NEGATIVE. CULTURES ARE PENDING HE DOES NOT HAVE NEURO SIGNS OF NEUROGENIC INFECTIONS. HE MAY HAVE ENDOCARDITIS BUT AGAIN IT IS A REMOTE POSSIBILITY. HE IS COVERED WITH BROAD SPECTRUM ABX. COVID IS PENDING. (2) Elevated procalcitonin Current Visit: Yes Status: Acute Plan: ABOVE (3) Elevated WBC count Current Visit: Yes Status: Acute Plan: ABOVE. (4) Anemia Current Visit: Yes Status: Acute Plan: NO ACUTE GI BLEED SIGNS. CHECK STOOL GUAIAC. NOT A CANDIDATE FOR EVAL FOR NOW HE HAS ACUTE INJURY. (5) Trochanteric fracture Current Visit: Yes Status: Acute Plan: NOT SURGICAL AMBULATE OKAY. Qualifiers: Encounter type: initial encounter - Advance Directives Does patient have a Living Will: Yes Does patient have a Durable POA for Healthcare: Yes
[2019-09-28] MEDS: cloNIDine HCL 0.1 MG TAB PO PRN (13:59)
[2019-09-28] MEDS: MORPHINE 2 MG/ML SYR IV PRN (14:00)
[2019-09-29] MEDS: PIPER/TAZO/NS 2.25gm 2.25 GM/50 ML BAG IVPB SCH ×4 (00:01→18:27)
[2019-09-29] MEDS: D5W 1,000 ML with NA BICARB 8.4% 50 MEQ IV SCH ×2 (00:10)
[2019-09-29 04:37] LABS: Absolute Lymphocytes (CBC) 1.4 K/uL (0.7-4.9); Basophils % 0.1 % (0-1.3); Hematocrit 24.1 % (39.6-49.0); Lymphocytes % 10.7 % (15.3-44.8); MPV 6.6 fL (7.6-11.3); RBC Red Blood Cell Count 2.61 M/uL (4.33-5.43)
--- NOTE | 2019-09-29 04:41 | CON ---
Date of Consultation: 09/28/2019 History Of Present Illness: This is my first time seeing this patient to my knowledge. He is an 83- year-old male, who unfortunately had an episode of syncope and fell. He was seen in the emergency de partment where he was ruled out for other injuries; however, he was found to have a hematoma along th e lateral aspect of his hip. Also, was found to have a nondisplaced fracture of greater trochanter. On seeing him today, he has multiple abrasions as well as abrasions to his face. He does have a judy rly large subcutaneous hematoma without sign of open injury on his left hip. He does have pain with movement or manipulation of his left hip, however, otherwise appears to be without obvious bony injur y. 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 On further review of the laruita ent's history, he says that he has had increasing pain in his left hip for the past 2 weeks prior to the fall, unsure of what this clinical finding would indicate. Plan: Plan at this time, I believe that he can walk, weightbearing as tolerated. We will probably u se a walker for a while. The hematoma, can be watched for any signs of infection. Otherwise, hopefu lly will slowly resolve. Obviously, it can be reconsulted for any ongoing problem, but I will speak with Dr. Verma regarding the patient and do not anticipate any operative intervention. /TAMMY Voice ID: [id number] Report ID: [id number]
[2019-09-29 04:43] LABS: Potassium 4.2 mmol/L (3.5-5.1)
[2019-09-29] MEDS ORDERED: CALCIUM CARBONATE CHEW 500MG TAB PO ONE (09:22)
[2019-09-29] MEDS: Ringers Lactate 1,000 ML IV SCH ×2 (09:28→20:20)
[2019-09-29] MEDS: TAMSULOSIN 0.4 MG SR CAP PO SCH (09:29)
[2019-09-29] MEDS: OLMESARTAN 40 MG PO SCH (09:29)
[2019-09-29] MEDS: FAMOTIDINE 20 MG/2 ML VIAL IV SCH (09:30)
--- NOTE | 2019-09-29 16:20 | RAD REPORT ---
EXAM DESCRIPTION: US - Abdomen Exam Complete - 09/29/2019 4:01 pm CLINICAL HISTORY: Abdominal pain. hydronephrosis COMPARISON: No comparisons FINDINGS: Heterogenous liver echotexture is seen. No focal liver lesions or intrahepatic biliary dil atation is seen. Cholecystectomy. Common bile duct is normal in caliber measuring 5 millimeters. Moderate bilateral hydronephrosis. No renal mass elucidated. The spleen is normal in size measuring 9 cm. The pancreas and aorta are obscured by bowel gas. The visualized aspects of the IVC are grossly normal. IMPRESSION: Moderate bilateral hydronephrosis. Mildly heterogenous liver echotexture may represent underlying fatty infiltration or chronic inflamma tion. Cholecystectomy.
[2019-09-29] MEDS: MORPHINE 2 MG/ML SYR IV PRN (21:20)
[2019-09-30] MEDS: PIPER/TAZO/NS 2.25gm 2.25 GM/50 ML BAG IVPB SCH ×2 (00:02→05:49)
--- NOTE | 2019-09-30 01:02 | PN ---
Subjective: Mr. Avendano is doing a lot better, feeling a lot better. Denies chest pain, nausea, or v omiting. Physical Examination: Vital Signs: His blood pressure 134/63, temperature 97.8, and pulse is 99. HEENT: No JVD. No carotid bruits. Chest: Clear. Heart: Regular. Abdomen: No guarding, no rebound, no rigidity. On investigations, so far we do not see any signs of infection. He has 1/4 blood cultures positive t hat could be a contaminant, until we know more. I am looking for possibility of endocarditis here, b ut clinically, he does not have signs of it. He does have signs of infection, but again it is not lan re where the infection source is. His urine test, his CT scan of chest, abdomen and pelvis show no s igns of obvious infection. He has hydronephrosis, which is possibly from benign prostatic hypertroph y. So, it is unclear about the source of infection so far. He has been given broad-spectrum antibio tics to cover what might be a possibility of septic shock. His coronavirus test is reported as pendi ng. Prognosis overall guarded. The patient will be transferred to rehab once stabilized. RVD/MODL Voice ID: [id number] Report ID: [id number]
[2019-09-30] MEDS: Ringers Lactate 1,000 ML IV SCH ×4 (02:11→21:27)
[2019-09-30 06:07] LABS: Absolute Lymphocytes (CBC) 1.3 K/uL (0.7-4.9); Basophils % 0.4 % (0-1.3); Hematocrit 21.4 % (39.6-49.0); Lymphocytes % 9.6 % (15.3-44.8); MPV 6.7 fL (7.6-11.3); RBC Red Blood Cell Count 2.31 M/uL (4.33-5.43)
[2019-09-30 06:19] LABS: Potassium 4.1 mmol/L (3.5-5.1)
--- NOTE | 2019-09-30 08:23 | P.PN ---
Subjective Date of Service: 09/30/19 Chief Complaint: PASSED OUT TWICE. Subjective: No new changes HE IS STABLE. HE WANTS TO GO HOME. HE IS NOT STABLE. HE LIVES ALONE. I TALKED TO DAUGHTER. THERE IS NO ONE TAKING CARE OF HIM. Review of Systems 10-point ROS is otherwise unremarkable Physical Examination - Vital Signs Temperature: 97.6 F Blood Pressure: 151/69 Pulse: 90 Respirations: 18 Pulse Ox (%): 97 - Physical Exam General: Alert, In no apparent distress, Other (ANGRY, WANTS TO GO HOME. ) HEENT: Atraumatic, PERRLA, EOMI Neck: Supple, JVD not distended Respiratory: Clear to auscultation bilaterally, Normal air movement Cardiovascular: Regular rate/rhythm, Normal S1 S2 Gastrointestinal: Normal bowel sounds, No tenderness Musculoskeletal: No tenderness Integumentary: No rashes Neurological: Normal speech, Normal tone, Normal affect Lymphatics: No axilla or inguinal lymphadenopathy - Studies Medications List Reviewed: Yes Assessment And Plan - Current Problems (Diagnosis) (1) Syncopal episodes Current Visit: Yes Status: Acute Plan: IT IS UNCLEAR WHY THIS HAPPENED. IF THERE IS SEPSIS, SO FAR I DON'T SEE A SOURCE OF IT. CXR, UA, CLINICAL EXAM ARE ALL NEGATIVE. SCANS DONE IN ER ARE NEGATIVE. CULTURES ARE PENDING HE DOES NOT HAVE NEURO SIGNS OF NEUROGENIC INFECTIONS. HE MAY HAVE ENDOCARDITIS BUT AGAIN IT IS A REMOTE POSSIBILITY. HE IS COVERED WITH BROAD SPECTRUM ABX. COVID IS PENDING. THIS MOST LIKELY FROM SEPSIS OF UNCLEAR ORIGIN. CONTINUE ABX. CHANGE TO LEVAQUIN. STOP ZOSYN. (2) Elevated procalcitonin Current Visit: Yes Status: Acute Plan: ABOVE (3) Elevated WBC count Current Visit: Yes Status: Acute Plan: ABOVE. (4) Anemia Current Visit: Yes Status: Acute Plan: NO ACUTE GI BLEED SIGNS. CHECK STOOL GUAIAC. NOT A CANDIDATE FOR EVAL FOR NOW HE HAS ACUTE INJURY. ANEMIA. HG LOWER TODAY MOSTLY FROM HEMATOMA. MAY HAVE GI ISSUES BUT HE REFUSES TO GO ANYWHERE EVEN REHAB. WE HAVE NO GI OR DOCTORS HERE. (5) Trochanteric fracture Current Visit: Yes Status: Acute Plan: NOT SURGICAL AMBULATE OKAY. Qualifiers: Encounter type: initial encounter (6) Bilateral hydronephrosis Current Visit: Yes Status: Chronic Plan: POSSIBLE. ABOVE. NEEDS DIAGNOSIS.
[2019-09-30] MEDS ORDERED: VALSARTAN 80 MG TAB PO SCH (09:00)
[2019-09-30] MEDS: OLMESARTAN 40 MG PO SCH (09:00)
[2019-09-30] MEDS ORDERED: HOME MED 1 EA UNK (Olmesartan Medoxomil [Olmesartan Medoxomil] 20 MG) PO SCH (09:00)
[2019-09-30] MEDS ORDERED: PANTOPRAZOLE 40MG TABLET PO SCH (09:00)
[2019-09-30] MEDS ORDERED: HOME MED 1 EA UNK (Omeprazole [Prilosec] 40 MG) PO SCH (09:00)
[2019-09-30] MEDS: MIRABEGRON 50 MG PO SCH (09:00)
[2019-09-30] MEDS: OMEPRAZOLE 40 MG PO SCH (09:00)
[2019-09-30] MEDS: levoFLOXacin 500 MG TAB PO SCH (09:00)
[2019-09-30] MEDS: TAMSULOSIN 0.4 MG SR CAP PO SCH (09:00)
--- NOTE | 2019-09-30 12:56 | ECHO ---
HEIGHT: 5 ft 8 in WEIGHT: 138 lb 0 oz DATE OF STUDY: 09/29/[address]: Jarrell Verma MD 2-DIMENSIONAL: YES M.MODE: YES DOPPLER: YES COLOR FLOW: YES TDS: PORTABLE: DEFINITY: BUBBLE STUDY: DIAGNOSIS: EDEMA, DYSPNEA CARDIAC HISTORY: CATHERIZATION: NO SURGERY: NO PROSTHETIC VALVE: NO PACEMAKER: NO MEASUREMENTS (cm) DIASTOLIC (NORMALS) SYSTOLIC (NORMALS) IVSd 1.1 (0.6-1.2) LA Diam 3.0 (1.9-4.0) LVEF >70% LVIDd 3.2 (3.5-5.7) LVIDs 2.1 (2.0-3.5) %FS 34% LVPWd 1.2 (0.6-1.2) Ao Diam 2.6 (2.0-3.7) 2 DIMENSIONAL ASSESSMENT: RIGHT ATRIUM: NORMAL LEFT ATRIUM: NORMAL RIGHT VENTRICLE: NORMAL LEFT VENTRICLE: NORMAL TRICUSPID VALVE: NORMAL MITRAL VALVE: NORMAL PULMONIC VALVE: NORMAL AORTIC VALVE: NORMAL PERICARDIAL EFFUSION: NONE AORTIC ROOT: NORMAL LEFT VENTRICULAR WALL MOTION: HYPERDYNAMIC DOPPLER/COLOR FLOW: MILD TRICUSPID REGURGITATION. NORMAL RIGHT VENTRICULAR SYSTOLIC PRESSURE. COMMENTS: HYPERDYNAMIC LEFT VENTRICLE. EJECTION FRACTION >70%. MILD TRICUSPID REGURGITATION. NORMAL RIGHT VENTRICULAR SYSTOLIC PRESSURE. NO EFFUSION. TECHNOLOGIST: SAMUEL RUBIO
[2019-09-30] MEDS: cloNIDine HCL 0.1 MG TAB PO PRN (13:00)
[2019-09-30] MEDS ORDERED: NA CHLORIDE 0.9% 250 ML ONE (15:00)
[2019-09-30 15:14] LABS: MPV 6.5 fL (7.6-11.3)
[2019-09-30 17:17] LABS: Platelet Estimate ADEQ
[2019-09-30 20:53] LABS: Hematocrit 22.8 % (39.6-49.0)
[2019-09-30] MEDS: METOPROLOL XL 25 MG TAB PO SCH (21:25)
[2019-10-01] MEDS ORDERED: NA CHLORIDE 0.9% 250 ML ONE (02:10)
[2019-10-01 07:53] LABS: Basophils % 0.3 % (0-1.3); Hematocrit 26.2 % (39.6-49.0); Lymphocytes % 7.3 % (15.3-44.8); MPV 6.2 fL (7.6-11.3); RBC Red Blood Cell Count 2.87 M/uL (4.33-5.43)
[2019-10-01 08:10] LABS: Potassium 4.3 mmol/L (3.5-5.1)
[2019-10-01] MEDS: OMEPRAZOLE 40 MG PO SCH (09:00)
[2019-10-01] MEDS: OLMESARTAN 40 MG PO SCH (09:00)
[2019-10-01] MEDS: MIRABEGRON 50 MG PO SCH (09:00)
[2019-10-01] MEDS: TAMSULOSIN 0.4 MG SR CAP PO SCH (09:11)
[2019-10-01] MEDS: Ringers Lactate 1,000 ML IV SCH ×2 (12:20→13:56)
[2019-10-01] MEDS: cloNIDine HCL 0.1 MG TAB PO PRN ×2 (12:54→21:01)
[2019-10-01] MEDS: AMLODIPINE 5 MG TAB PO SCH (16:52)
--- NOTE | 2019-10-01 17:45 | P.PN ---
Subjective Date of Service: 10/01/19 Chief Complaint: STABLE. Subjective: Improving HE IS STABLE. HE WANTS TO GO HOME. HE IS NOT STABLE. HE LIVES ALONE. I TALKED TO DAUGHTER. THERE IS NO ONE TAKING CARE OF HIM. MR BARRETO HAS NO NEW ISSUES. WE [facility]IT[facility]. Review of Systems 10-point ROS is otherwise unremarkable General: Weakness Physical Examination - Vital Signs Temperature: 97.8 F Blood Pressure: 184/79 Pulse: 77 Respirations: 18 Pulse Ox (%): 98 - Physical Exam General: Alert, In no apparent distress HEENT: Atraumatic, PERRLA, EOMI Neck: Supple, JVD not distended Respiratory: Clear to auscultation bilaterally, Normal air movement Cardiovascular: Regular rate/rhythm, Normal S1 S2 Gastrointestinal: Normal bowel sounds, No tenderness Musculoskeletal: No tenderness, Other (LARGE HIP ARE HEMATOMA. SP FALL. ) Integumentary: No rashes Neurological: Normal speech, Normal tone, Normal affect Lymphatics: No axilla or inguinal lymphadenopathy - Studies Medications List Reviewed: Yes Assessment And Plan - Current Problems (Diagnosis) (1) Syncopal episodes Current Visit: Yes Status: Acute Plan: IT IS UNCLEAR WHY THIS HAPPENED. IF THERE IS SEPSIS, SO FAR I DON'T SEE A SOURCE OF IT. CXR, UA, CLINICAL EXAM ARE ALL NEGATIVE. SCANS DONE IN ER ARE NEGATIVE. CULTURES ARE PENDING HE DOES NOT HAVE NEURO SIGNS OF NEUROGENIC INFECTIONS. HE MAY HAVE ENDOCARDITIS BUT AGAIN IT IS A REMOTE POSSIBILITY. HE IS COVERED WITH BROAD SPECTRUM ABX. COVID IS PENDING. THIS MOST LIKELY FROM SEPSIS OF UNCLEAR ORIGIN. CONTINUE ABX. CHANGE TO LEVAQUIN. STOP ZOSYN. (2) Elevated procalcitonin Current Visit: Yes Status: Acute Plan: ABOVE (3) Elevated WBC count Current Visit: Yes Status: Acute Plan: ABOVE. (4) Anemia Current Visit: Yes Status: Acute Plan: NO ACUTE GI BLEED SIGNS. CHECK STOOL GUAIAC. NOT A CANDIDATE FOR EVAL FOR NOW HE HAS ACUTE INJURY. ANEMIA. HG LOWER TODAY MOSTLY FROM HEMATOMA. MAY HAVE GI ISSUES BUT HE REFUSES TO GO ANYWHERE EVEN REHAB. WE HAVE NO GI OR DOCTORS HERE. (5) Trochanteric fracture Current Visit: Yes Status: Acute Plan: NOT SURGICAL AMBULATE OKAY. Qualifiers: Encounter type: initial encounter (6) Bilateral hydronephrosis Current Visit: Yes Status: Chronic Plan: POSSIBLE. ABOVE. NEEDS DIAGNOSIS. 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 HE IS STABLE BUT NEEDS STABLE HG AND DIAGNOSIS FOR ETIOLOGY OF LOW HG AND HYDRONEPHROSIS.
[2019-10-01] MEDS: METOPROLOL XL 25 MG TAB PO SCH (21:00)
[2019-10-02] MEDS: Ringers Lactate 1,000 ML IV SCH ×3 (03:41→21:20)
[2019-10-02] MEDS: cloNIDine HCL 0.1 MG TAB PO PRN (05:25)
[2019-10-02] MEDS: OMEPRAZOLE 40 MG PO SCH (08:00)
[2019-10-02] MEDS: OLMESARTAN 40 MG PO SCH (08:01)
[2019-10-02] MEDS: TAMSULOSIN 0.4 MG SR CAP PO SCH (08:01)
[2019-10-02] MEDS: MIRABEGRON 50 MG PO SCH (08:01)
[2019-10-02] MEDS: AMLODIPINE 5 MG TAB PO SCH (08:01)
[2019-10-02] MEDS: levoFLOXacin 500 MG TAB PO SCH (08:02)
--- NOTE | 2019-10-02 19:30 | RAD REPORT ---
EXAM DESCRIPTION: US - Abdomen Pelvis Scan US - 10/02/2019 6:48 pm CLINICAL HISTORY: renal artery doppler bilateral COMPARISON: Abdomen Exam Complete dated 09/29/2019None. TECHNIQUE: Sonographic evaluation of the kidneys was performed with measurements obtained and gross anatomic assessment performed.Doppler evaluation of the renal arteries, interlobar arteries and aorta performed. Waveforms and velocities were recorded. The renal artery ratios and resistive index pritesh ues were calculated. FINDINGS: Right kidney is 9.1 x 4.8 x 3.4 cm. Left kidney is 12.5 x 5.4 x 5.0 cm. Both kidneys show moderate severity bilateral hydronephrosis. No solid mass lesion. Increased parenchymal echogenicity is noted. Renal artery ratios are normal range measuring 1.3 on the right and 1.1 on the left. No suspicious ve locity value or abnormal waveform. Right resistive index value is 0 point 7 6 with the left index pritesh ue ranging from 0.72-0.81 in value. Arcuate resistive index values are 0.66 on the left and 0.65 on t he right. IMPRESSION: Renal artery examination shows no evidence for renal artery stenosis. Moderate severity bilateral hydronephrosis.
[2019-10-02] MEDS: ACETAMINOPHEN 325 MG TABLET PO PRN (20:02)
[2019-10-02] MEDS: METOPROLOL XL 25 MG TAB PO SCH (20:02)
[2019-10-03] MEDS: cloNIDine HCL 0.1 MG TAB PO PRN ×2 (04:08→11:37)
[2019-10-03] MEDS: Ringers Lactate 1,000 ML IV SCH (04:20)
[2019-10-03 05:49] LABS: Absolute Lymphocytes (CBC) 1.1 K/uL (0.7-4.9); Basophils % 0.5 % (0-1.3); Lymphocytes % 9.6 % (15.3-44.8); MPV 6.6 fL (7.6-11.3); RBC Red Blood Cell Count 2.72 M/uL (4.33-5.43)
[2019-10-03 06:01] LABS: Potassium 3.7 mmol/L (3.5-5.1)
[2019-10-03] MEDS: AMLODIPINE 5 MG TAB PO SCH (08:02)
[2019-10-03] MEDS: TAMSULOSIN 0.4 MG SR CAP PO SCH (08:02)
[2019-10-03] MEDS: OLMESARTAN 40 MG PO SCH (08:06)
[2019-10-03] MEDS: OMEPRAZOLE 40 MG PO SCH (08:06)
[2019-10-03] MEDS: MIRABEGRON 50 MG PO SCH (08:07)
[2019-10-03 08:10] LABS: Blood Morphology Comment NOT SEEN (NOT SEEN); Platelet Estimate ADEQ
[2019-10-03] MEDS: MORPHINE 2 MG/ML SYR IV PRN (17:02)
--- NOTE | 2019-10-03 19:04 | RAD REPORT ---
EXAM DESCRIPTION: US - Extrem Venous W Compress Khadar - 10/03/2019 6:09 pm CLINICAL HISTORY: rule out dvt Bilateral leg edema and swelling. COMPARISON: No comparisons TECHNIQUE: Real-time sonographic interrogation of the left and right lower extremity deep venous sys tems was performed. FINDINGS: Normal compressibility, flow augmentation, phasic flow and spontaneous flow is identified in both the left and right lower extremity deep venous systems. IMPRESSION: No sonographic evidence of left or right lower extremity deep venous thrombosis.
[2019-10-03 19:55] VITALS: BP 180/86
[2019-10-03] MEDS: METOPROLOL XL 25 MG TAB PO SCH (19:55)
[2019-10-03 20:24] VITALS: TEMP 98.4; O2SAT 99
--- NOTE | 2019-10-03 21:08 | P.DS ---
Admission Date: 09/28/19 Discharge Date: 10/03/19 Disposition: TRANSFER TO [facility] Discharge Condition: FAIR Reason for Admission: STABLE. - Problems (1) Syncopal episodes Status: Acute (2) Elevated procalcitonin Status: Acute (3) Elevated WBC count Status: Acute (4) Anemia Status: Acute (5) Trochanteric fracture Status: Acute Qualifiers: Encounter type: initial encounter (6) Bilateral hydronephrosis Status: Chronic Brief History of Present Illness: MR. DUONG HAS NO SYMPTOMS OF ANY ISSUES BEFORE HE PASSED OUT TWICE AT HOME. HE HAS NO CHEST PAIN, NAUSEA, FEVER ETC. I TALKED TO HIS DAUGHTER. HE AT BASELINE IS A HEALTHY ELDERLY MAN WITH HTN, AND DJD. HE BROKE TROCHANTERIC PROCESS WHILE HE FELL. THIS IS NOT SURGICAL. Hospital Course: MR. DUONG COMES IN AFTER TWO EPISODES OF SYNCOPE, HEAD INJURY, L TROCHANTER FRACTURE, HAD INITIAL PRESENTATION OF SEPSIS BUT NO SOURCE OF INFECTION PANNED OUT. HE DROPPED HIS HG A FEW TIMES WITH POSITIVE GUAIAC NEEDING TWO UNITS OF PACKED RBCS. HE HAD TO BE TRANSFERRED TO [facility] AFTER MUCH EFFORT FOUR OTHER HOSPITALS DID NOT HAVE BEDS. 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 FAMILY WAS KEPT INFORMED. Vital Signs/Physical Exam: Temp Pulse Resp BP Pulse Ox 98.4 F 79 19 180/86 H 99 10/03/19 20:00 10/03/19 20:00 10/03/19 20:00 10/03/19 20:00 10/03/19 20:00 General: Oriented x3 HEENT: Atraumatic, PERRLA, EOMI Neck: Supple, JVD not distended Respiratory: Clear to auscultation bilaterally, Normal air movement Cardiovascular: Regular rate/rhythm, Normal S1 S2 Gastrointestinal: Normal bowel sounds, No tenderness Musculoskeletal: No tenderness Integumentary: No rashes Neurological: Normal speech, Normal tone, Normal affect Lymphatics: No axilla or inguinal lymphadenopathy Laboratory Data at Discharge: WBC 11.3 K/uL (4.3-10.9) H D 10/03/19 05:14 Hgb 8.6 g/dL (13.6-17.9) L 10/03/19 05:14 Hct 25.0 % (39.6-49.0) L 10/03/19 05:14 Plt Count 377 K/uL (152-406) 10/03/19 05:14 PT 11.1 SECONDS (9.5-12.5) 09/27/19 21:30 INR 0.94 09/27/19 21:30 APTT 29.4 SECONDS (24.3-36.9) 09/27/19 21:30 Sodium 139 mmol/L (136-145) 10/03/19 05:14 Potassium 3.7 mmol/L (3.5-5.1) 10/03/19 05:14 BUN 12 mg/dL (7-18) 10/03/19 05:14 Creatinine 1.44 mg/dL (0.55-1.3) H 10/03/19 05:14 Glucose 104 mg/dL (74-106) 10/03/19 05:14 Magnesium 1.8 mg/dL (1.8-2.4) 09/27/19 21:30 Total Bilirubin 0.4 mg/dL (0.2-1.0) 09/27/19 21:30 AST 29 U/L (15-37) 09/27/19 21:30 ALT 16 U/L (12-78) 09/27/19 21:30 Alkaline Phosphatase 117 U/L (45-117) 09/27/19 21:30 Troponin I 0.02 ng/mL (0.0-0.045) 09/28/19 06:10 Lipase 174 U/L (73-393) 09/27/19 21:30 Home Medications: Mirabegron [Myrbetriq] 50 mg PO DAILY 09/28/19 Olmesartan Medoxomil 20 mg PO DAILY 09/28/19 Omeprazole [Prilosec] 40 mg PO DAILY 09/28/19
[2019-10-04] MEDS ORDERED: levoFLOXacin 750 MG TAB PO SCH (09:00)
== END 2019-10-03 20:22 | disposition short-term general hospital (02) | DRG 871 ==
LOC: ER 21:11 → ERHOLD 09-28 00:04 → 2ND 09-28 00:50
PROVIDERS: ADMIT Internal Medicine; ATTEND Internal Medicine
PROC: 30233N1 Transfusion of Nonautologous Red Blood Cells into Peripheral Vein, Percutaneous Approach (ICD-10-PCS; principal; 2019-09-28)
DX: A41.9 Sepsis, unspecified organism (principal); S72.112A Displaced fracture of greater trochanter of left femur, initial encounter for closed fracture; R65.21 Severe sepsis with septic shock; N13.6 Pyonephrosis; N17.9 Acute kidney failure, unspecified; D62 Acute posthemorrhagic anemia; I10 Essential (primary) hypertension; M19.90 Unspecified osteoarthritis, unspecified site; S61.412A Laceration without foreign body of left hand, initial encounter; D72.829 Elevated white blood cell count, unspecified; S70.02XA Contusion of left hip, initial encounter; R55 Syncope and collapse; W18.30XA Fall on same level, unspecified, initial encounter; Z79.899 Other long term (current) drug therapy; Z90.49 Acquired absence of other specified parts of digestive tract; Z88.5 Allergy status to narcotic agent; Z60.2 Problems related to living alone; Z11.59 Encounter for screening for other viral diseases
CPT/HCPCS: 36415; 36430; 51702; 70450; 71045; 71250; 72125; 72170; 76700; 80048; 80076; 81003; 82274; 82550; 82553; 82805; 82947; 83605; 83690; 83735; 83930; 83935; 84145; 84300; 84484; 85014; 85018; 85025; 85049; 85610; 85730; 86140; 86850; 86900; 86901; 87040; 87205; 90471; 90714; 93005; 93306; 93970; 93975; 96361; 96374; 96375; 97110; 97112; 97116; 97161; 97530; 99285; G0390; J1200; J1940; J2270; J2543; J7030; J7050; J7120; P9016; U0002

== ENCOUNTER 2020-08-28 23:00 | Observation (INO) | payer OTHER, MEDICARE ==
--- OUTSIDE RECORDS SUMMARY | 2020-08-28 23:03 | XMS REPORT | Continuity of Care Document ---
:1935 Author Organization [facility] t Address [address] [place] [address] Care Team Providers Name Role Phone Jose Carlos PLATA Attending Clinician Rm, Surg Spec Procedure Attending Clinician Unavailable Doctor Unassigned, Name Attending Clinician Unavailable Problems This patient has no known problems. Allergies, Adverse Reactions, Alerts This patient has no known allergies or adverse reactions. Medications This patient has no known medications. Procedures Procedure Date / Time Performed Performing Clinician Sourc e [id number] 2019-10-09 00:00:00 ENCPL [id number] 2019-10-09 00:00:00 ENCPL [id number] 2019-10-09 00:00:00 ENCPL [id number] 2019-10-09 00:00:00 ENCPL [id number] 2019-10-09 00:00:00 ENCPL Encounters Start End Encounter Admission Attending Care Care Encounter Source Date/Time Date/Time Type Type Clinicians Facility Department ID 2020-07-26 2020-07-26 Telephone [facility] [id number] 00:00:00 00:00:00 [facility] Sen [id number] Jessica [id number] Professio [id number] [address] 2020-07-22 2020-07-22 Office [facility] [id number] 08:54:31 09:38:28 Visit Rigo, Andrea Surg Spec Procedure Francy 3 [id number] Jessica [id number] Professio [id number] [address] 2020-07-22 2020-07-22 Orders Doctor GSIELA [id number] 00:00:00 00:00:00 Only Unassigned, LUR[place] [id number] [place] [facility] [id number] Results This patient has no known results.
[2020-08-28] MEDS ORDERED: NA CHLORIDE 0.9% 1,000 ML ONE (23:27)
[2020-08-28 23:51] LABS: Absolute Lymphocytes (CBC) 0.6 K/uL (0.7-4.9); Basophils % 0.3 % (0-1.3); Hematocrit 32.5 % (39.6-49.0); Lymphocytes % 4.3 % (15.3-44.8); MPV 7.1 fL (7.6-11.3); RBC Red Blood Cell Count 3.17 M/uL (4.33-5.43)
[2020-08-28 23:54] LABS: Protime INR 0.88
[2020-08-29 00:03] LABS: Albumin 3.6 g/dL (3.4-5.0); Bilirubin Direct 0.1 mg/dL (0-0.2); Bilirubin Total 0.4 mg/dL (0.2-1.0); Protein, Total 7.9 g/dL (6.4-8.2); Troponin (Emerg Dept Use Only) 0.03 ng/mL (0.0-0.045)
[2020-08-29 00:08] LABS: Urine Blood 2+ (Negative); Urine Glucose Negative (Negative); Urine Protein Negative (Negative); Urine pH 5.5 (5.0-7.0)
[2020-08-29] MEDS ORDERED: cloNIDine HCL 0.1 MG TAB ONE (00:59)
[2020-08-29 01:14] LABS: Urine Bacteria <20 /HPF (NONE SEEN); Urine Mucus SLIGHT /HPF (NONE SEEN); Urine RBC <5 /HPF (NONE SEEN)
--- NOTE | 2020-08-29 01:19 | EDPHYS ---
Physician Documentation [facility] Name: Judge Avendano Age: 84 yrs Sex: Male : 1935 Arrival Date: 08/28/2020 Time: 23:02 Bed 14 Private MD: ED Physician Chepe Farias HPI: 08/29 00:22 This 84 yrs old Male presents to ER via EMS with complaints of passed out. rn 00:22 The patient has experienced syncope. Onset: The symptoms/episode began/occurred at an rn unknown time. Duration: This was a single episode. Associated injury: The patient did not suffer any apparent associated injury. Associated signs and symptoms: Pertinent negatives: abdominal pain, blurred vision, chest pain, combativeness, confusion, diaphoresis, headache, palpitations, seizure, shortness of breath, vertigo, weakness. Current symptoms: Currently, the patient is not experiencing any symptoms. The patient has experienced a previous episode. The patient has not recently seen a physician. Per EMS, daughter found patient on floor, unwitnessed, likely syncope, patient thinks was on his way to use bathroom but not sure. Woke up on floor. No pain from fall. Pt reports feels ok, denies any recent illness/fever/chest pain/sob/abd pain/vomiting/diarrhea. Per reports, did have 6-8 beers today, not sure when. . Historical: - Allergies: 08/28 23:07 Demerol; em - PMHx: 23:07 Hypertension; em - PSHx: 23:07 abdominal surgery; em - Immunization history:: Adult Immunizations up to date. - Social history:: Smoking status: Patient denies any tobacco usage or history of. - Family history:: not pertinent. - Hospitalizations: : No recent hospitalization is reported. ROS: 08/29 00:22 Constitutional: Negative for fever, chills, and weight loss, Eyes: Negative for injury, rn pain, redness, and discharge, Neck: Negative for injury, pain, and swelling, Cardiovascular: Negative for chest pain, palpitations, and edema, Respiratory: Negative for shortness of breath, cough, wheezing, and pleuritic chest pain, Abdomen/GI: Negative for abdominal pain, nausea, vomiting, diarrhea, and constipation, Back: Negative for injury and pain, MS/Extremity: Negative for injury and deformity, Skin: Negative for injury, rash, and discoloration, Neuro: Negative for headache, weakness, numbness, tingling, and seizure. Exam: 00:22 Constitutional: This is a well developed, well nourished patient who is awake, alert, rn and in no acute distress. Head/Face: Normocephalic, atraumatic. Eyes: Periorbital areas with no swelling, redness, or edema. ENT: dry MM Cardiovascular: Regular rate and rhythm. No pulse deficits. Respiratory: No increased work of breathing, no retractions or nasal flaring. Abdomen/GI: soft, non-tender Skin: Warm, dry MS/ Extremity: Pulses equal, no cyanosis. Neuro: Awake and alert, GCS 15, oriented to person, place, time, and situation. Cranial nerves II-XII grossly intact. Motor strength 4/5 in all extremities. Sensory grossly intact. Vital Signs: 08/28 23:02 BP 212 / 101; Pulse 77; Resp 18; Temp 97.9; Pulse Ox 99% on R/A; em 23:55 BP 205 / 94; Pulse 71; Resp 14 S; Pulse Ox 100% ; ad5 08/29 00:30 BP 181 / 90; Pulse 75; Resp 15 S; Pulse Ox 99% on R/A; ad5 01:19 BP 177 / 79; Pulse 71; Resp 15 S; Pulse Ox 100% on R/A; ad5 Lipscomb Coma Score: 08/28 23:55 Eye Response: spontaneous(4). Verbal Response: oriented(5). Motor Response: obeys ad5 commands(6). Total: 15. MDM: 23:03 Patient medically screened. rn 08/29 01:15 Differential Diagnosis: cardiac arrhythmia, idiopathic syncope, vasovagal episode, ETOH rn related, dehydration. Data reviewed: vital signs, nurses notes, lab test result(s), EKG, radiologic studies, CT scan, and as a result, I will admit patient. Counseling: I had a detailed discussion with the patient and/or guardian regarding: the historical points, exam findings, and any diagnostic results supporting the discharge/admit diagnosis, lab results, radiology results, the need for further work-up and treatment in the hospital. Response to treatment: the patient's symptoms have markedly improved after treatment, and as a result, I will discharge patient. Admission orders: after a detailed discussion of the patient's condition and case, the admit orders are written by me. 08/28 23:05 Order name: Basic Metabolic Panel rn 08/28 23:05 Order name: CBC with Diff rn 08/28 23:05 Order name: CPK; Complete Time: 00:51 rn 08/28 23:05 Order name: Hepatic Function; Complete Time: 00:51 rn 08/28 23:05 Order name: Lipase; Complete Time: 00:51 rn 08/28 23:05 Order name: Magnesium; Complete Time: 00:51 rn 08/28 23:05 Order name: Protime (+inr); Complete Time: 00:04 rn 08/28 23:05 Order name: Ptt, Activated; Complete Time: 00:04 rn 08/28 23:05 Order name: Troponin (emerg Dept Use Only); Complete Time: 00:51 rn 08/28 23:05 Order name: Urine Microscopic Only; Complete Time: 07:31 rn 08/28 23:05 Order name: ETOH Level; Complete Time: 00:04 rn 08/28 23:06 Order name: Basic Metabolic Panel; Complete Time: 00:51 EDMS 08/28 23:06 Order name: CBC with Automated Diff; Complete Time: 07:31 EDMS 08/28 23:56 Order name: Manual Differential; Complete Time: 07:31 EDMS 08/28 23:05 Order name: CT Head Brain wo Cont rn 08/28 23:05 Order name: EKG; Complete Time: 23:06 rn 08/28 23:05 Order name: Cardiac monitoring; Complete Time: 23:06 rn 08/28 23:05 Order name: EKG - Nurse/Tech; Complete Time: 23:15 rn 08/28 23:05 Order name: IV Saline Lock; Complete Time: 23:15 rn 08/28 23:05 Order name: Labs collected and sent; Complete Time: 23:15 rn 08/28 23:05 Order name: O2 Sat Monitoring; Complete Time: 23:15 rn 08/28 23:05 Order name: Urine Dipstick-Ancillary (obtain specimen); Complete Time: 01:19 08/29 00:08 Order name: Urine Dipstick-Ancillary; Complete Time: 00:51 EDMS Administered Medications: 08/28 23:07 Drug: NS 0.9% 1000 ml Route: IV; Rate: 1000 ml; Site: left antecubital; ad5 08/29 00:42 Drug: cloNIDine 0.1 mg Route: PO; ad5 01:17 Follow up: Response: No adverse reaction ad5 Disposition: 08/29/20 01:18 Hospitalization ordered by Jarrell Verma for Observation. Preliminary diagnosis are Syncope and collapse, Hypo-osmolality and hyponatremia, Acidosis. - Bed requested for Telemetry/MedSurg (observation). - Status is Observation. ad5 - Condition is Stable. - Problem is new. - Symptoms have improved. Signatures: Dispatcher [employer] EDMS Radha Joseph RN RN mw Munoz, Edgar, RN Chepe Stephenson MD MD rn Davidson, Andrea ad5 Corrections: (The following items were deleted from the chart) 00:28 00:22 Constitutional: This is a well developed, well nourished patient who is awake, rn alert, and in no acute distress. rn 02:08 01:18 Hospitalization Ordered by Jarrell Verma MD for Observation. Preliminary diagnosis mw is Syncope and collapse; Hypo-osmolality and hyponatremia; Acidosis. Bed requested for Telemetry/MedSurg (observation). Status is Observation. Condition is Stable. Problem is new. Symptoms have improved. rn 02:56 02:08 08/29/2020 01:18 Hospitalization Ordered by Jarrell Verma MD for Observation. ad5 Preliminary diagnosis is Syncope and collapse; Hypo-osmolality and hyponatremia; Acidosis. Bed requested for Telemetry/MedSurg (observation). Status is Observation. Condition is Stable. Problem is new. Symptoms have improved. mw
--- NOTE | 2020-08-29 01:19 | ER ---
Nurse's Notes [facility] Name: Judge Avendano Age: 84 yrs Sex: Male : 1935 Arrival Date: 08/28/2020 Time: 23:02 Bed 14 Private MD: Diagnosis: Syncope and collapse;Hypo-osmolality and hyponatremia;Acidosis Presentation: 08/28 23:02 Chief complaint: EMS states: called out for after being found on the floor by daughter, em pt does not remember being on the ground, EMS also reports him having 6-8 beers, denies any pain, skin tear noted to the right elbow, 20 G L FA. Coronavirus screen: Client denies travel out of the [place] in the last 14 days. Ebola Screen: Patient negative for fever greater than or equal to 101.5 degrees Fahrenheit, and additional compatible Ebola Virus Disease symptoms Patient denies exposure to infectious person. Patient denies travel to an Ebola-affected area in the 21 days before illness onset. No symptoms or risks identified at this time. Initial Sepsis Screen: Does the patient meet any 2 criteria? No. Patient's initial sepsis screen is negative. Does the patient have a suspected source of infection? No. Patient's initial sepsis screen is negative. Risk Assessment: Do you want to hurt yourself or someone else? Patient reports no desire to harm self or others. Onset of symptoms was August 28, 2020. 23:02 Method Of Arrival: EMS: [facility] em 23:02 Acuity: ANDREW 3 em Historical: - Allergies: 23:07 Demerol; em - PMHx: 23:07 Hypertension; em - PSHx: 23:07 abdominal surgery; em - Immunization history:: Adult Immunizations up to date. - Social history:: Smoking status: Patient denies any tobacco usage or history of. - Family history:: not pertinent. - Hospitalizations: : No recent hospitalization is reported. Screenin:53 Abuse screen: Denies threats or abuse. Denies injuries from another. Nutritional ad5 screening: pt reports poor po intake at home, daily ETOH use. Tuberculosis screening: No symptoms or risk factors identified. Fall Risk Fall in past 12 months (25 points). Secondary diagnosis (15 points) IV access (20 points). Ambulatory Aid- None/Bed Rest/Nurse Assist (0 pts). Gait- Weak (10 pts.). Mental Status- Overestimates/Forgets Limitations (15 pts.). Total Burnett Fall Scale indicates High Risk Score (45 or more points). Fall prevention measures have been instituted. Side Rails Up X 2 Placed Close to Nursing Station Frequent Obs/Assessments Occuring Family Present and informed to notify staff if the need to leave the bedside As available patient and family educated on Fall Prevention Program and Strategies. 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 AAOx3 upon arrival to ED, answers questions appropriately. Generalized weakness noted. Pt unsure if has been taking home meds appropriately, elevated BP noted at this time. Pt denies any c/o. General: Appears in no apparent distress. comfortable, Behavior is calm, cooperative, appropriate for age. Pain: Denies pain. Neuro: Level of Consciousness is awake, alert, obeys commands, Oriented to person, place, time, situation, Appropriate for age Net Programmer Analyst are equal bilaterally Moves all extremities. Weakness Speech is normal, Facial symmetry appears normal, Pupils are PERRLA, Intact. Cardiovascular: Heart tones S1 S2 present Capillary refill < 3 seconds Patient's skin is warm and dry. Rhythm is regular. Respiratory: No deficits noted. Airway is patent Respiratory effort is even, unlabored, Respiratory pattern is regular, symmetrical. GI: pt reports poor appetite. : Reports incontinence. Derm: Skin has skin tears on R elbow, bandage in place, dry/intact. Musculoskeletal: Reports weakness in generalized weakness. 08/29 00:10 Reassessment: Patient appears in no apparent distress at this time. No changes from ad5 previously documented assessment. Patient and/or family updated on plan of care and expected duration. Pain level reassessed. Patient is alert, oriented x 3, equal unlabored respirations, skin warm/dry/pink. 01:15 Reassessment: No changes from previously documented assessment. Pt given urinal, ad5 repositioned for comfort after use. Pt informed of admission per MD, family at bedside, questions/concerns addressed. Will continue to monitor. Vital Signs: 08/28 23:02 BP 212 / 101; Pulse 77; Resp 18; Temp 97.9; Pulse Ox 99% on R/A; em 23:55 BP 205 / 94; Pulse 71; Resp 14 S; Pulse Ox 100% ; ad5 08/29 00:30 BP 181 / 90; Pulse 75; Resp 15 S; Pulse Ox 99% on R/A; ad5 01:19 BP 177 / 79; Pulse 71; Resp 15 S; Pulse Ox 100% on R/A; ad5 Anderson Coma Score: 08/28 23:55 Eye Response: spontaneous(4). Verbal Response: oriented(5). Motor Response: obeys ad5 commands(6). Total: 15. ED Course: 23:02 Patient arrived in ED. em 23:03 Chepe Farias MD is Attending Physician. rn 23:06 Andres Trujillo is Primary Nurse. ad5 23:07 Triage completed. em 23:07 Arm band placed on. em 23:07 Patient has correct armband on for positive identification. Placed in gown. Bed in low ad5 position. Call light in reach. Side rails up X2. stock checkerer on. Pulse ox on. NIBP on. Door closed. Noise minimized. Warm blanket given. Head of bed elevated. 23:07 Maintain EMS IV. Dressing intact. Good blood return noted. Site clean \T\ dry. Gauge \T\ ad 5 site: 20g dual cath L forearm. 23:42 CT Head Brain wo Cont In Process Unspecified. EDDE 08/29 01:17 Jarrell Verma MD is Hospitalizing Provider. rn 02:16 No provider procedures requiring assistance completed. Patient admitted, IV remains in ad5 place. Administered Medications: 08/28 23:07 Drug: NS 0.9% 1000 ml Route: IV; Rate: 1000 ml; Site: left antecubital; ad5 08/29 00:42 Drug: cloNIDine 0.1 mg Route: PO; ad5 01:17 Follow up: Response: No adverse reaction ad5 Outcome: 01:18 Decision to Hospitalize by Provider. rn 02:16 Admitted to Med/surg via stretcher, Report called to SHERLY Charles ad5 02:16 Condition: stable 02:16 Instructed on the need for admit, Demonstrated understanding of instructions. 02:56 Patient left the ED. ad5 Signatures: Dispatcher [employer] EDDE Jakob Joe RN RN Chepe Farias MD MD rn Davidson, Andrea ad5 Corrections: (The following items were deleted from the chart) 08/28 23:54 23:07 Door closed. Noise minimized. Warm blanket given. Head of bed lowered. ad5 ad5 23:54 23:07 Maintain EMS IV. Dressing intact. Good blood return noted. Site clean \T\ dry. ad5 ad5
[2020-08-29 01:40] LABS: Blood Morphology Comment NOT SEEN (NOT SEEN); Platelet Estimate ADEQ
[2020-08-29] MEDS ORDERED: NA CHLORIDE 0.9% 1,000 ML IV SCH (03:24)
[2020-08-29] MEDS ORDERED: ONDANSETRON 4 MG/2 ML VIAL IV PRN (03:24)
[2020-08-29 03:54] VITALS: BMI 19.8
--- NOTE | 2020-08-29 08:18 | EKG ---
Test Date: 2020-08-28 Test Time: 23:07:04 Division Manager: LUIS MEASUREMENT RESULTS: Intervals: Rate: 77 CO: 188 QRSD: 98 QT: 432 QTc: 488 [place]: P: 73 CO: 188 QRS: 52 T: 60 INTERPRETIVE STATEMENTS: Normal sinus rhythm Prolonged QT Abnormal ECG Compared to ECG 09/27/2019 21:35:34 Prolonged QT interval now present Electronically Signed On 08-29-20 08:17:59 CDT by Guanakito Stallworth
[2020-08-29 08:43] LABS: Absolute Lymphocytes (CBC) 1.1 K/uL (0.7-4.9); Basophils % 1.2 % (0-1.3); Hematocrit 31.9 % (39.6-49.0); Lymphocytes % 16.2 % (15.3-44.8); MPV 7.2 fL (7.6-11.3); RBC Red Blood Cell Count 3.16 M/uL (4.33-5.43)
[2020-08-29 08:59] LABS: Potassium 4.2 mmol/L (3.5-5.1)
[2020-08-29] MEDS ORDERED: PNEUMOCOCCAL VACCINE 0.5 ML IMVAC ONE (09:00)
[2020-08-29] MEDS ORDERED: VALSARTAN 80 MG TAB PO SCH (09:00)
[2020-08-29 09:16] VITALS: O2SAT 97
--- NOTE | 2020-08-29 11:35 | RAD REPORT ---
EXAM DESCRIPTION: CT - Head Brain Wo Cont - 08/29/2020 4:21 am CLINICAL HISTORY: SYNCOPE. TECHNIQUE: Axial, coronal, and sagittal images through the brain were performed in the absence of in travenous contrast. This exam was performed according to our departmental dose-optimization program w hich includes use of Automated Exposure Control, adjustment of the mA and/or kV according to patient size and/or use of iterative reconstruction technique. COMPARISON: CT of the head from September 27, 2019. FINDINGS: There is diffuse age-appropriate atrophy throughout the brain parenchyma. Moderate periven tricular white matter changes are present, and there is moderate ex vacuo dilatation of the ventricul ar system. There is no intra-axial or extra-axial bleed. There is no mass or mass effect. Prominent mucosal thickening in the left maxillary sinus. Mild mucosal thickening in the right maxill jonn sinus. The remaining visualized paranasal sinuses and mastoid air cells are patent. No acute frac ture is identified. IMPRESSION: 1. No acute intracranial abnormality identified. 2. Chronic age-related and microvascular ischemic changes. 3. Paranasal sinus disease. Electronically signed by: Rody Monae MD 08/29/2020 12:52 AM CDT Due to temporary technical issues with the PACS/Fluency reporting system, reports are being signed by the in house radiologist without review as a courtesy to ensure prompt reporting. The interpreting r adiologist is fully responsible for the content of the report.
[2020-08-29 12:46] VITALS: BP 169/78; TEMP 97.8
--- NOTE | 2020-08-29 13:11 | P.SSS ---
Patient History Date of Service: 08/29/20 Reason for admission: FALLEN AND MAY BE PASSED OUT. History of Present Illness: MR. DUONG IS GM WITH HTN AND I WAS NEVER TOLD HE DRINKS HEAVY ALSO. HE TODAY SAYS HE DRINKS AT LEAST 6 BEER CANS A DAY AND HAS NO INTENTION TO REDUCE. HE FELL AND WAS FOUND TO BE ACIDOTIC. HE SAYS HE DOES NOT WANT TO STAY HERE. HE FEELS FINE. HIS LAB HAS IMPROVED WELL CLOSE TO NORMAL. IF HE AMBULATES HE CAN GO HOME. AT THIS AGE HE MAY NOT CHANGE HIS WAYS OF LIFE. Allergies meperidine HCl [From Demerol] Adverse Reaction (Verified 07/15/17 13:54) hallucinations Home Medications: Mirabegron [Myrbetriq] 50 mg PO DAILY 09/28/19 Olmesartan Medoxomil 20 mg PO DAILY 09/28/19 Omeprazole [Prilosec] 40 mg PO DAILY 09/28/19 Finasteride [Proscar*] 1 tab PO DAILY 08/29/20 bisoproloL fumarate [Zebeta*] 5 mg PO DAILY 08/29/20 - Past Medical/Surgical History Diabetic: No -: HYpertension -: Prostate problem -: Cholecystectomy -: Hip sx -: abdominal Sx - Family History Father -: Heart disease, Stroke Mother -: Other (see notes) Notes: no medical problem - Social History Smoking Status: Unknown if ever smoked Alcohol use: Yes CD- Drugs: No Caffeine use: Yes Place of Residence: Home Physical Examination - Vital Signs Temperature: 97.8 F Blood Pressure: 169/78 Pulse: 50 Respirations: 18 Pulse Ox (%): 99 - Physical Exam General: Oriented x3, Mild distress HEENT: Atraumatic, PERRLA, Mucous membr. moist/pink, EOMI, Sclerae nonicteric Neck: Supple, 2+ carotid pulse no bruit, No LAD, Without JVD or thyroid abnormality Respiratory: Clear to auscultation bilaterally, Normal air movement Cardiovascular: Regular rate/rhythm, Normal S1 S2 Gastrointestinal: Normal bowel sounds, No tenderness Musculoskeletal: No tenderness Integumentary: No rashes Neurological: Normal gait, Normal speech, Normal strength at 5/5 x4 extr, Normal tone, Normal affect Lymphatics: No axilla or inguinal lymphadenopathy - Studies Laboratory Data (last 24 hrs) 08/28/20 23:15: PT 10.1, INR 0.88, APTT 27.8 08/28/20 23:15: WBC 12.90 H, Hgb 10.8 L, Hct 32.5 L, Plt Count 211 08/28/20 23:15: Sodium 124 L, Potassium 4.0, BUN 16, Creatinine 1.47 H, Glucose 91, Magnesium 2.0, Total Bilirubin 0.4, AST 32, ALT 11 L, Alkaline Phosphatase 82, Lipase 106 - Diagnosis (Problem(s)) (1) Metabolic acidosis Current Visit: Yes Status: Acute Plan: CORRECTED WITH IV FLUIDS HPI HE IS EAGER TO GO HOME. (2) Alcohol abuse Current Visit: Yes Status: Chronic Plan: HE MAY OR MAY NOT REDUCE IT. (3) HTN (hypertension) Current Visit: Yes Status: Chronic - Disposition Disposition: ROUTINE DISCHARGE Condition: FAIR
[2020-08-29 13:59] LABS: MPV 7.5 fL (7.6-11.3)
[2020-08-29 14:14] LABS: Platelet Estimate ADEQ
[2020-08-30] MEDS ORDERED: HOME MED 1 EA UNK (Mirabegron [Myrbetriq] 50 MG Tab.Er.24h) PO SCH (09:00)
[2020-08-30] MEDS ORDERED: BISOPROLOL 5 MG TABLET PO SCH (09:00)
[2020-08-30] MEDS ORDERED: PANTOPRAZOLE 40MG TABLET PO SCH (09:00)
[2020-08-30] MEDS ORDERED: ENOXAPARIN 40 MG/0.4 ML SQ SCH (09:00)
[2020-08-30] MEDS ORDERED: HOME MED 1 EA UNK (Omeprazole [Prilosec] 40 MG Capsule.Dr) PO SCH (09:00)
[2020-08-30] MEDS ORDERED: HOME MED 1 EA UNK (Olmesartan Medoxomil [Olmesartan Medoxomil] 40 MG Tablet) PO SCH (09:00)
[2020-08-30] MEDS ORDERED: FINASTERIDE 5 MG TAB PO SCH (09:00)
== END 2020-08-29 16:20 | disposition home or self-care (01) ==
LOC: ER 23:00 → 4TH 08-29 02:47
PROVIDERS: ADMIT Internal Medicine; ATTEND Internal Medicine
DX: E87.2 Acidosis (principal); F10.10 Alcohol abuse, uncomplicated; I10 Essential (primary) hypertension; Y90.3 Blood alcohol level of 60-79 mg/100 ml
CPT/HCPCS: 93005; 85025 ×2; 80048 ×2; 36415; 80320; 83735; 82550; 85049; 85610; 80076; 85730; 84484; 83690; 70450; 97116; 97161; 97530; J7030 ×2; G0378 ×2; 81003; 81015; 99285

== ENCOUNTER 2020-12-17 09:18 | Inpatient (IN) | payer OTHER, MEDICARE ==
[2020-12-17 09:50] LABS: Absolute Lymphocytes (CBC) 0.6 K/uL (0.7-4.9); Basophils % 0.6 % (0-1.3); Hematocrit 30.4 % (39.6-49.0); Lymphocytes % 4.1 % (15.3-44.8); MPV 6.4 fL (7.6-11.3); RBC Red Blood Cell Count 3.21 M/uL (4.33-5.43)
[2020-12-17 09:53] LABS: Protime INR 1.03
[2020-12-17] MEDS ORDERED: MORPHINE 4 MG/ML SYR ONE (09:53)
[2020-12-17] MEDS ORDERED: ONDANSETRON 4 MG/2 ML VIAL ONE (09:54)
[2020-12-17] MEDS ORDERED: MORPHINE 2 MG/ML SYR ONE ×3 (09:56→13:39)
[2020-12-17 10:09] LABS: BUN Blood Urea Nitrogen 23 mg/dL (7-18); Bicarbonate 21 mmol/L (21-32); Glucose Level 135 mg/dL (74-106); NT PRO-BNP 1674 pg/mL (<450); Potassium 3.9 mmol/L (3.5-5.1); Sodium Level 131 mmol/L (136-145); Troponin (Emerg Dept Use Only) < 0.02 ng/mL (0.0-0.045)
--- NOTE | 2020-12-17 10:25 | RAD REPORT ---
EXAM DESCRIPTION: RAD - Hip Right 2 View - 12/17/2020 10:19 am CLINICAL HISTORY: PAIN COMPARISON: Pelvis dated 12/17/2020 FINDINGS: Displaced right intertrochanteric hip fracture with superior and lateral displacement of d istal fragment. No dislocation. Peripheral vascular calcifications. Partially imaged left hip arthrop lasty. IMPRESSION: Displaced right intertrochanteric hip fracture without dislocation.
--- NOTE | 2020-12-17 10:26 | RAD REPORT ---
EXAM DESCRIPTION: RAD - Femur Right - 12/17/2020 10:19 am CLINICAL HISTORY: PAIN COMPARISON: No comparisons FINDINGS: Displaced right-sided intertrochanteric hip fracture. No other femur fractures are identif ied. Peripheral vascular calcifications. Mild degenerative changes are present at the knee. No disloc ation. IMPRESSION: Displaced right intertrochanteric fracture.
--- NOTE | 2020-12-17 10:26 | RAD REPORT ---
EXAM DESCRIPTION: RAD - Chest Single View - 12/17/2020 10:18 am CLINICAL HISTORY: fall COMPARISON: Chest Pa And Lat (2 Views) dated 07/10/2020; Chest Single View dated 09/28/2019; Chest Sin gle View dated 09/27/2019; CHEST PA AND LAT 2 VIEW dated 07/28/2012 FINDINGS: Lines: None. Lungs: No evidence of edema or pneumonia. Scattered calcified pulmonary nodules. Pleural: No significant pleural effusions or pneumothorax. Calcified pleural plaques. Cardiac: The heart size is within normal limits. Bones: No acute fractures. Other: IMPRESSION: No acute cardiopulmonary disease.
--- NOTE | 2020-12-17 10:27 | RAD REPORT ---
EXAM DESCRIPTION: RAD - Pelvis - 12/17/2020 10:18 am CLINICAL HISTORY: BLUNT TRAUMA COMPARISON: Pelvis dated 09/27/2019 FINDINGS: Right-sided displaced intertrochanteric hip fracture. No dislocation. Left hip arthroplast y without evidence of hardware complications or dislocation. No pelvic fracture is seen. IMPRESSION: Right intertrochanteric hip fracture. No pelvic fracture. Intact left hip arthroplasty.
[2020-12-17] MEDS ORDERED: NA CHLORIDE 0.9% 500 ML ONE (10:40)
--- NOTE | 2020-12-17 11:43 | EDPHYS ---
Physician Documentation [facility] Name: Judge Avendano Age: 85 yrs Sex: Male : 1935 Arrival Date: 12/17/2020 Time: 09:20 Bed 15 Private MD: ED Physician Chepe Farias HPI: 12/17 09:34 This 85 yrs old Male presents to ER via Unassigned with complaints of Fall rn Injury. 09:34 Details of fall: The patient fell from an upright position, while walking. Onset: The rn symptoms/episode began/occurred just prior to arrival. Associated injuries: The patient sustained Right hip. Severity of symptoms: At their worst the symptoms were mild, in the emergency department the symptoms are unchanged. The patient has not experienced similar symptoms in the past. The patient has not recently seen a physician. Patient reports 2 weeks of lower extremity swelling and pain. Today was attempted to walk with walker and got away from him, fell, does not recall exactly how he fell but denies loss of consciousness. Denies taking blood thinners. Patient denies any sort of injury or pain from fall. Denies any fever or shortness of breath. Historical: - Allergies: 14:10 Demerol; tw5 - Home Meds: 14:10 HTN med [Active]; Trazodone Oral nightly [Active]; tw5 - PMHx: 14:10 Hypertension; tw5 - Immunization history: Last tetanus immunization: unknown. - Family history:: not pertinent. - Social history:: Smoking status: Patient/guardian denies using tobacco, the patient reports quitting approximately 30 years ago. - Hospitalizations: : No recent hospitalization is reported. ROS: 09:34 Constitutional: Negative for fever, chills, and weight loss, Eyes: Negative for injury, rn pain, redness, and discharge, Neck: Negative for injury, pain, and swelling, Cardiovascular: Negative for chest pain, palpitations, positive for bilateral lower extremity edema Respiratory: Negative for shortness of breath, cough, wheezing, and pleuritic chest pain, Abdomen/GI: Negative for abdominal pain, nausea, vomiting, diarrhea, and constipation, Back: Negative for injury and pain, MS/Extremity: Positive for right hip injury and pain, pain to bilateral lower extremities from swelling Skin: Negative for injury, rash, and discoloration, Neuro: Positive for generalized weakness 09:34 All other systems are negative. Exam: 09:34 Constitutional: Thin male, no acute distress, making jokes Head/Face: Normocephalic, rn atraumatic. Eyes: Periorbital areas with no swelling, redness, or edema. ENT: Dry mucous membranes Cardiovascular: Regular rate and rhythm. No pulse deficits. Respiratory: Speaking full sentences, unlabored. No increased work of breathing, no retractions or nasal flaring. Abdomen/GI: Soft, non-tender Skin: Warm, dry MS/ Extremity: Pulses equal, no cyanosis. Neurovascular intact. Full, normal range of motion. Equal circumference. 1+ pitting edema bilateral lower extremities with dry skin and mild erythema. No warmth. No streaking. No lacerations Neuro: Awake and alert, GCS 15, oriented to person, place, time, and situation. Cranial nerves II-XII grossly intact. Motor strength 4/5 in all extremities. Sensory grossly intact. Vital Signs: 09:42 BP 186 / 96; Pulse 65; Resp 18; Pulse Ox 99% on R/A; Height 5 ft. 5 in. (165.10 cm); tw5 Pain 10/10; 10:37 BP 156 / 110; Pulse 80; Resp 17; Pulse Ox 100% ; Pain 10/10; tw5 11:19 BP 169 / 97; Pulse 62; Resp 18; Pulse Ox 100% on R/A; Pain 10/10; tw5 13:18 BP 192 / 90; Pulse 69; Resp 18; Pulse Ox 100% on R/A; Pain 10/10; tw5 [place] Coma Score: 09:42 Eye Response: spontaneous(4). Verbal Response: oriented(5). Motor Response: obeys tw5 commands(6). Total: 15. Trauma Score (Adult): 09:42 Eye Response: spontaneous(1); Verbal Response: oriented(1); Motor Response: obeys tw5 commands(2); Systolic BP: > 89 mm Hg(4); Respiratory Rate: 10 to 29 per min(4); [place] Score: 15; Trauma Score: 12 MDM: 09:20 Patient medically screened. rn 11:39 Differential diagnosis: contusion, fracture, sprain, strain. Data reviewed: vital rn signs, nurses notes, lab test result(s), radiologic studies, plain films, and as a result, I will admit patient. Counseling: I had a detailed discussion with the patient and/or guardian regarding: the historical points, exam findings, and any diagnostic results supporting the discharge/admit diagnosis, lab results, radiology results, the need for further work-up and treatment in the hospital. Response to treatment: the patient's symptoms have mildly improved after treatment, and as a result, I will admit patient. Admission orders: after a detailed discussion of the patient's condition and case, the admit orders are written by me. ED course: Patient with mildly displaced right intertrochanteric femur fracture. Consulted with Dr. Soto Will admit to Dr. Verma. 11:39 Test interpretation: by ED physician or midlevel provider: plain radiologic studies, rn Xray right hip shows displaced right intertrochanteric femur fracture. 13:19 ED course: Notify Dr. Verma and Dr. Soto regarding admission and consultation.. rn 12/17 09:22 Order name: Basic Metabolic Panel; Complete Time: 10:10 rn 12/17 09:22 Order name: CBC with Diff; Complete Time: 10:10 rn 12/17 09:22 Order name: NT PRO-BNP; Complete Time: 10:10 rn 12/17 09:22 Order name: PT-INR; Complete Time: 10:10 rn 12/17 09:22 Order name: Troponin (emerg Dept Use Only); Complete Time: 10:10 rn 12/17 09:21 Order name: XRAY Chest (1 view); Complete Time: 10:40 rn 12/17 09:21 Order name: XRAY Pelvis; Complete Time: 10:40 rn 12/17 09:21 Order name: XRAY Hip RIGHT 2 view; Complete Time: 10:40 rn 12/17 09:21 Order name: XRAY Femur RIGHT; Complete Time: 10:40 rn 12/17 12:32 Order name: SARS-COV-2 RT PCR EDMS 12/17 09:22 Order name: EKG; Complete Time: 09:22 rn 12/17 09:22 Order name: Cardiac monitoring; Complete Time: 09:39 rn 12/17 09:22 Order name: EKG - Nurse/Tech; Complete Time: 09:39 rn 12/17 09:22 Order name: IV Saline Lock; Complete Time: 09:39 rn 12/17 09:22 Order name: Labs collected and sent; Complete Time: 09:39 rn 12/17 09:22 Order name: O2 Per Protocol; Complete Time: 11:16 rn 12/17 09:22 Order name: O2 Sat Monitoring; Complete Time: 11:16 rn Administered Medications: 09:36 Drug: morphine 2 mg {Note: 2 mg IVP push now.} Route: IVP; Site: left antecubital; tw5 10:32 Follow up: Response: No adverse reaction; Pain is unchanged, physician notified; RASS: tw5 Alert and Calm (0) 09:36 Drug: Zofran (Ondansetron) 4 mg Route: IVP; Site: left antecubital; tw5 10:32 Follow up: Response: No adverse reaction tw5 09:59 Drug: NS 0.9% 500 ml Route: IV; Rate: bolus; Site: left antecubital; tw5 14:08 Follow up: IV Status: Completed infusion; IV Intake: 500ml tw5 10:34 Drug: morphine 2 mg Route: IVP; Site: left antecubital; tw5 13:12 Follow up: Response: No adverse reaction; Pain is unchanged, physician notified tw5 13:13 Follow up: Response: RASS: Alert and Calm (0) tw5 13:15 Drug: morphine 2 mg Route: IVP; Site: left antecubital; tw5 14:08 Follow up: Response: No adverse reaction; Pain is unchanged, physician notified; RASS: tw5 Alert and Calm (0) Disposition Summary: 12/17/20 11:42 Hospitalization Ordered Hospitalization Status: Inpatient Admission rn Provider: Jarrell Verma rn [facility] rn Condition: Stable rn Problem: new rn Symptoms: have improved rn Bed/Room Type: Standard rn Room Assignment: 232(12/17/20 13:57) ss Diagnosis - Displaced intertrochanteric fracture of right femur rn - Edema, unspecified rn Forms: - Medication Reconciliation Form rn - SBAR form rn Signatures: Dispatcher [employer] EDMS Chepe Farias MD MD rn Smirch, Shelby, RN RN Ekta Glynn tw5 Corrections: (The following items were deleted from the chart) 11:39 09:22 CORONAVIRUS+MR.LAB.BRZ ordered. EDME EDMS 13:57 11:42 rn ss
--- NOTE | 2020-12-17 11:43 | ER ---
Nurse's Notes [facility] Name: Judge Avendano Age: 85 yrs Sex: Male : 1935 Arrival Date: 12/17/2020 Time: 09:20 Bed 15 Private MD: Diagnosis: Displaced intertrochanteric fracture of right femur;Edema, unspecified Presentation: 12/17 09:42 Chief complaint: EMS states: "Patient was found on the floor stated that he had fallen tw5 around 4 AM. Had tried to go to the restroom. He states that his legs hurt him all the time, but now his right hip hurts". Care prior to arrival: IV initiated. 18 GA, in the left antecubital area. Mechanism of Injury: Fall from standing position. Trauma event details:. 09:42 Acuity: ANDREW 2 tw5 09:42 Method Of Arrival: EMS[facility] tw5 14:09 Coronavirus screen: Unknown. Ebola Screen: Patient negative for fever greater than or tw5 equal to 101.5 degrees Fahrenheit, and additional compatible Ebola Virus Disease symptoms. Initial Sepsis Screen: Does the patient meet any 2 criteria? Does the patient have a suspected source of infection? No. Patient's initial sepsis screen is negative. Risk Assessment: Do you want to hurt yourself or someone else? Patient reports no desire to harm self or others. Onset of symptoms is unknown. Historical: - Allergies: 14:10 Demerol; tw5 - Home Meds: 14:10 HTN med [Active]; Trazodone Oral nightly [Active]; tw5 - PMHx: 14:10 Hypertension; tw5 - Immunization history: Last tetanus immunization: unknown. - Family history:: not pertinent. - Social history:: Smoking status: Patient/guardian denies using tobacco, the patient reports quitting approximately 30 years ago. - Hospitalizations: : No recent hospitalization is reported. Screenin:03 Abuse screen: Denies threats or abuse. Denies injuries from another. Tuberculosis tw5 screening: No symptoms or risk factors identified. Fall Risk Fall in past 12 months (25 points). 14:09 Nutritional screening: No deficits noted. tw5 Primary Survey: 09:42 NO uncontrolled hemorrhage observed. Breathing/Chest: Respiratory pattern: regular. tw5 Circulation: Cardiac rhythm: sinus rhythm. Disability Alert. Reassessment Breathing/Chest Respiratory pattern Regular Circulation Heart rhythm Sinus rhythm Disability Alert. 14:09 Exposure/Environment: Obvious injury(ies) are noted at this time: Right hip. tw5 Assessment: 09:42 General: Appears uncomfortable, unkempt, Behavior is cooperative. Pain: Complains of tw5 pain in right hip, right leg and left leg Pain currently is 10 out of 10 on a pain scale. Neuro: Level of Consciousness is awake, alert, obeys commands, Oriented to person, place, time, situation. Cardiovascular: Heart tones S1 S2 present. Respiratory: Airway is patent Trachea midline Respiratory effort is even, unlabored, Respiratory pattern is regular. Derm: Skin is fragile, is thin, with poor turgor Skin is dry, Skin is pink. 10:37 Reassessment: Patient appears in no apparent distress at this time. tw5 10:38 Cardiovascular: Edema is 4+ to left foot, left toes, right foot and right toes. tw5 11:18 Reassessment: Patient appears in no apparent distress at this time. tw5 11:18 : Reports incontinence. tw5 Vital Signs: 09:42 BP 186 / 96; Pulse 65; Resp 18; Pulse Ox 99% on R/A; Height 5 ft. 5 in. (165.10 cm); tw5 Pain 10/10; 10:37 BP 156 / 110; Pulse 80; Resp 17; Pulse Ox 100% ; Pain 10/10; tw5 11:19 BP 169 / 97; Pulse 62; Resp 18; Pulse Ox 100% on R/A; Pain 10/10; tw5 13:18 BP 192 / 90; Pulse 69; Resp 18; Pulse Ox 100% on R/A; Pain 10/10; tw5 [place] Coma Score: 09:42 Eye Response: spontaneous(4). Verbal Response: oriented(5). Motor Response: obeys tw5 commands(6). Total: 15. Trauma Score (Adult): 09:42 Eye Response: spontaneous(1); Verbal Response: oriented(1); Motor Response: obeys tw5 commands(2); Systolic BP: > 89 mm Hg(4); Respiratory Rate: 10 to 29 per min(4); [place] Score: 15; Trauma Score: 12 ED Course: 09:20 Patient arrived in ED. rn 09:20 Chepe Farias MD is Attending Physician. rn 09:22 Ekta Momin is Primary Nurse. tw5 09:44 Triage completed. tw5 10:07 Patient has correct armband on for positive identification. Bed in low position. Side tw5 rails up X2. Patient maintains SpO2 saturation greater than 95% on room air. Initial lab(s) drawn, by ED staff. 10:18 XRAY Chest (1 view) In Process Unspecified. EDMS 10:18 XRAY Pelvis In Process Unspecified. EDMS 10:18 XRAY Hip RIGHT 2 view In Process Unspecified. EDMS 10:18 XRAY Femur RIGHT In Process Unspecified. EDMS 11:18 COVID swab sent to lab. Maintain EMS IV. Dressing intact. Good blood return noted. Site tw5 clean \\T\\ dry. Gauge \\T\\ site: 18. 11:40 Catarino Orta MD is Hospitalizing Provider. rn 11:40 Jarrell Verma MD is Hospitalizing Provider. rn 14:08 No provider procedures requiring assistance completed. Patient admitted, IV remains in tw5 place. 14:10 Thermoregulation: warm blanket given to patient. tw5 Administered Medications: 09:36 Drug: morphine 2 mg {Note: 2 mg IVP push now.} Route: IVP; Site: left antecubital; tw5 10:32 Follow up: Response: No adverse reaction; Pain is unchanged, physician notified; RASS: tw5 Alert and Calm (0) 09:36 Drug: Zofran (Ondansetron) 4 mg Route: IVP; Site: left antecubital; tw5 10:32 Follow up: Response: No adverse reaction tw5 09:59 Drug: NS 0.9% 500 ml Route: IV; Rate: bolus; Site: left antecubital; tw5 14:08 Follow up: IV Status: Completed infusion; IV Intake: 500ml tw5 10:34 Drug: morphine 2 mg Route: IVP; Site: left antecubital; tw5 13:12 Follow up: Response: No adverse reaction; Pain is unchanged, physician notified tw5 13:13 Follow up: Response: RASS: Alert and Calm (0) tw5 13:15 Drug: morphine 2 mg Route: IVP; Site: left antecubital; tw5 14:08 Follow up: Response: No adverse reaction; Pain is unchanged, physician notified; RASS: tw5 Alert and Calm (0) Intake: 09:42 PO: 0ml; Total: 0ml. tw5 14:08 IV: 500ml; Total: 500ml. tw5 Output: 09:42 Urine: 0ml; Total: 0ml. tw5 Outcome: 11:42 Decision to Hospitalize by Provider. rn 14:04 Admitted to Tele Report called to Elvira DUBOIS. tw5 14:09 Condition: unchanged tw5 14:09 Patient's length of stay was not longer than 2 hours. 14:20 Patient left the ED. ap3 Signatures: Dispatcher [employer] Chepe Guzman MD MD rn Prokisch, Amanda, RN RN ap3 Wood, Tiffany tw5
[2020-12-17] MEDS ORDERED: D5.45NS W/KCL 20MEQ 1,000 ML IV SCH (14:14)
[2020-12-17] MEDS ORDERED: ONDANSETRON 4 MG/2 ML VIAL IV PRN (14:14)
[2020-12-17] MEDS ORDERED: INFLUENZA VACCINE (for 6+ mo) 0.5 ML DOSE IMVAC ONE (16:00)
[2020-12-17] MEDS ORDERED: cloNIDine HCL 0.1 MG TAB PO PRN ×2 (16:09→16:34)
[2020-12-17] MEDS: MORPHINE 2 MG/ML SYR IV PRN ×3 (16:31→23:31)
[2020-12-17 20:23] VITALS: BP 101/56; TEMP 98.4
[2020-12-17] MEDS ORDERED: ENOXAPARIN 30 MG/0.3 ML SQ SCH (21:00)
[2020-12-17 21:03] VITALS: O2SAT 98
--- NOTE | 2020-12-17 21:43 | P.SSS ---
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 HE DRINKS ALCOHOL HEAVILY. HE DID NOT WANT TO QUIT DOING SO. HE THIS TIME FALLS BACKWARD ADN BREAKS R HIP. I WAS JUST TOLD THAT THE FRACTURE TABLE HERE HAS BROKEN ALSO. HE WILL BE TRAN[facility]ERRED TO [facility]. [facility] HAS NO BEDS ALSO. Allergies meperidine HCl [From Demerol] Adverse Reaction (Verified 07/15/17 13:54) hallucinations Home Medications: Famotidine 20 mg PO BIDWM 12/17/20 Finasteride 5 mg PO DAILY 12/17/20 Olmesartan Medoxomil 20 mg PO DAILY 12/17/20 Tamsulosin [Flomax] 0.4 mg PO BEDTIME 12/17/20 bisoproloL fumarate [Zebeta] 5 mg PO DAILY 12/17/20 - Past Medical/Surgical History Has patient received pneumonia vaccine in the past: Yes Diabetic: No -: HYpertension -: Prostate problem -: Cholecystectomy -: Hip sx -: abdominal Sx - Family History Father -: Heart disease, Stroke Mother -: Other (see notes) Notes: no medical problem - Social History Smoking Status: Never smoker Alcohol use: Yes CD- Drugs: No Caffeine use: Yes Place of Residence: Home Physical Examination - Vital Signs Temperature: 98.4 F Blood Pressure: 101/56 Pulse: 66 Respirations: 16 Pulse Ox (%): 94 - Physical Exam General: Alert, Oriented x3, Cachectic, Mild distress HEENT: Atraumatic Neck: Supple, JVD not distended Respiratory: Clear to auscultation bilaterally Cardiovascular: No edema, Normal S1 S2, No gallops Musculoskeletal: Other (R HIP IN TRACTION.) - Studies Laboratory Data (last 24 hrs) 12/17/20 09:40: PT 11.8, INR 1.03 12/17/20 09:40: WBC 15.60 H, Hgb 10.2 L, Hct 30.4 L, Plt Count 338 12/17/20 09:40: Sodium 131 L, Potassium 3.9, BUN 23 H, Creatinine 1.72 H, Glucose 135 H - Diagnosis (Problem(s)) (1) Recent fracture of hip Current Visit: Yes Status: Acute Plan: HE IS MODERATE RISK FOR HIP SURGERY. HE HAS NO CHOICE AT THIS TIME. HIS RECOVERY WILL BE POOR. I ADVISE [facility] [place] FOR HIM HE CONTINUES TO DRINK HEAVY AND IS NOT GOING TO DO WELL. HE IS SENT TO [facility] TODAY. DISCUSSED WITH MAGALIS AT BEDSIDE- WINSTON VILLAFUERTE. (2) Alcohol abuse Current Visit: No Status: Chronic Plan: HE DOES NOT WANT TO QUIT. (3) HTN (hypertension) Current Visit: No Status: Chronic - Disposition Disposition: ROUTINE DISCHARGE
[2020-12-18] MEDS ORDERED: FAMOTIDINE 20 MG TAB PO SCH (08:00)
[2020-12-18] MEDS ORDERED: THIAMINE 200 MG/2 ML INJ IVP SCH (09:00)
[2020-12-18] MEDS ORDERED: VALSARTAN 80 MG TAB PO SCH (09:00)
[2020-12-18] MEDS ORDERED: FINASTERIDE 5 MG TAB PO SCH (09:00)
[2020-12-18] MEDS ORDERED: BISOPROLOL 5 MG TABLET PO SCH (09:00)
[2020-12-18] MEDS ORDERED: FOLIC ACID 1 MG TABLET PO SCH (09:00)
--- NOTE | 2020-12-18 16:47 | EKG ---
Test Date: 2020-12-17 Test Time: 09:27:14 Bus Operator: GINNY MEASUREMENT RESULTS: Intervals: Rate: 64 VA: 168 QRSD: 88 QT: 446 QTc: 460 [place]: P: 58 VA: 168 QRS: 57 T: 33 INTERPRETIVE STATEMENTS: Normal sinus rhythm Possible Anterior infarct, age undetermined ST & T wave abnormality, consider inferior ischemia Abnormal ECG Compared to ECG 08/28/2020 23:07:04 Myocardial infarct finding now present ST (T wave) deviation now present Possible ischemia now present Prolonged QT interval no longer present Electronically Signed On 12-18-20 16:43:09 CDT by Guanakito Stallworth
[2020-12-18] MEDS ORDERED: TAMSULOSIN 0.4 MG SR CAP PO SCH (21:00)
== END 2020-12-18 00:55 | disposition short-term general hospital (02) | DRG 536 ==
LOC: ER 09:18 → ERHOLD 13:20 → 2ND 14:12
PROVIDERS: ADMIT Internal Medicine; ATTEND Internal Medicine
DX: S72.141A Displaced intertrochanteric fracture of right femur, initial encounter for closed fracture (principal); I10 Essential (primary) hypertension; F10.10 Alcohol abuse, uncomplicated; W18.30XA Fall on same level, unspecified, initial encounter; Y92.009 Unspecified place in unspecified non-institutional (private) residence as the place of occurrence of the external cause; Z20.822 Contact with and (suspected) exposure to COVID-19
CPT/HCPCS: 36415; 71045; 72170; 80048; 83880; 84484; 85025; 85610; 93005; 96361; 96374; 96375; 99285; J1650; J2270; J2405; J3411; J7040; U0003